=== PATIENT | male | born 1950 | race Caucasian/White ===

== ENCOUNTER 2016-08-24 14:53 | Observation (INO) | payer OTHER, MEDICARE ==
[~2016-08-24] VITALS: Ht 167.6 cm; Wt 54.4 kg
[~2016-08-24 14:53] MED LIST: ANTIVERT 25 MG25 M1 PO; ASPIRIN EC325 MG PO; BENTYL10 M1 PO; CALCIUM + D 6001 TAB PO; CIPRO 500MG TA500 MG PO; CIPRO250 M1 PO; CITRATE OF MAG300 ML PO; DILANTIN100 M1 PO; DILANTIN50 MG PO; DIVALPROEX SOD250 M2 PO; FINASTERIDE5 M1 PO; GLUCOSAMINE & C1 CAP PO; LEVAQUIN500 MG PO; LEVETIRACETAM500 M2 PO; LEVETIRACETAM500 MG PO; LEVSIN-SL0.125 MG SL; MULTIVITAMIN1 TAB PO; NAPROSYN500 M1 PO; PERCOCET 325 MG1 TA2 PO; PERCOCET 5-3251 EACH PO; PHENOBARBITAL32.4 M1 PO; PHENOBARBITAL32.4 MG PO; PRILOSEC10 M1 PO; TRAMADOL HCL50 M1 PO; ZOFRAN ODT4 M1 SL; ZOFRAN ODT4 MG PO; ZOFRAN4 M2 SL; [UNRECOGNIZED DRUG - OTHER] PO
--- NOTE | 2016-08-24 14:59 | NUR ---
65 Y/O MALE C/O "IM SHAKING BUT IM SWEATING .. I HAVE A HEADACHE .. I HAVE URINARY PROBLEMS .. I HAVENT HAD A BOWEL MOVEMENT IN A WEEK .. ". PT STATES THE PRIMARY REASON HE IS HERE TODAY IS "THE HOT, THE COLD AND THE SHAKES". AFEBRILE.
--- NOTE | 2016-08-24 15:07 | NUR ---
APPRECIATE TRIAGE NOTE. ALERT, WALKS WITH CANE, STATES "I CAN'T STOP PEEING"/
--- NOTE | 2016-08-24 15:49 | NUR ---
IV STARTED, MEDICATED FOR PAIN, LABS DRAWN (1 SST, 1 PURPLE). BLADDER SCANNED: GREATER THAN 999, DR. CHAVEZ AWARE.
--- NOTE | 2016-08-24 15:52 | ED GI/GU/ABDOMINAL COMPLAINT ---
See Addendum History of Present Illness General Chief Complaint: Nausea, Vomiting, Diarrhea Stated Complaint: NVD Source: patient, old records Exam Limitations: no limitations Vital Signs & Intake/Output Vital Signs & Intake/Output Vital Signs Date Time Temp Pulse Resp B/P Pulse O2 O2 Flow FiO2 Ox Delivery Rate 08/25 1104 76 18 127/78 08/25 1101 97.1 66 122/78 96 08/25 0948 97.1 72 124/70 96 08/25 0418 97.3 88 18 121/68 96 Room Air 08/24 2254 97.3 77 18 128/66 98 08/24 1731 80 20 124/72 97 Room Air 08/24 1714 95.4 68 18 121/75 100 Room Air 08/24 1458 97.9 108 16 132/84 98 Room Air ED Intake and Output 08/25 0000 08/24 1200 Intake Total 510 Output Total 60 Balance 450 Intake, IV 500 Intake, Oral 10 Output, Urine 60 Patient 120 lb Weight Allergies Coded Allergies: Iodinated Contrast Media - Oral and (IODINATED CONTRAST MEDIA - IV DYE) (GONZALEZ 10/20/15) latex (RASH 08/24/16) morphine (nv 02/09/16) oxycodone (NAUSEA 08/24/16) Uncoded Allergies: OIL BASE PAINT (Severe, LIGHT HEADED 08/22/11) Reconcile Medications Aspirin (Aspirin*) 325 MG TABLET 0.5 TAB PO DAILY HEART/BLOOD (Reported) Divalproex Sodium 250 MG TABLET.DR 1 TAB PO DAILY SEIZURES (Reported) Finasteride (Unknown Strength) TABLET 5 MG PO DAILY BLADDER (Reported) Levetiracetam 500 MG TABLET 1 TAB PO DAILY SEIZURES (Reported) Levetiracetam 500 MG TABLET 2 TAB PO QPM SEIZURES (Reported) Multivitamin (Multi-Day Vitamins) 1 EACH TABLET 1 TAB PO DAILY SUPPLEMENT ( Reported) Phenobarbital 32.4 MG TABLET 1 TAB PO BID Seizures Phenytoin (Dilantin) 100 MG CAPSULE 1 CAP PO QAM SEIZURES (Reported) Phenytoin (Dilantin) 50 MG TAB.CHEW 1 TAB PO QAM SEIZURES (Reported) Triage Note: 65 Y/O MALE C/O "IM SHAKING BUT IM SWEATING .. I HAVE A HEADACHE .. I HAVE URINARY PROBLEMS .. I HAVENT HAD A BOWEL MOVEMENT IN A WEEK .. ". PT STATES THE PRIMARY REASON HE IS HERE TODAY IS "THE HOT, THE COLD AND THE SHAKES". AFEBRILE. Triage Nurses Notes Reviewed? yes Onset: Last week Duration: day(s):, continues in ED, getting worse Timing: recent history Quality/Severity: fullness, severe Location: suprapubic Radiation: no radiation Activities at Onset: none Prior Abdominal Problems: similar symptoms Past Sexual History: Unobtainable at this time Sexually Active: No Modifying Factors: Worsens With: palpation. Associated Symptoms: abdominal pain HPI: 1 week prior to admission patient notes progressive decrease in urine stream to just drops with lower abdominal distention nausea weakness chills. He attempted to catheterize himself prior to admission but was unsuccessful but improving stream to trickle. He has been incontinent of urine since this time. He denies fever diarrhea chest pain cough shortness of breath headache dysuria rash bleeding. (QUYNH CHAVEZ MD) Past History Travel History Traveled to [place] past 21 day No Medical History Any Pertinent Medical History? see below for history Neurological: seizure EENT: NONE Cardiovascular: NONE Respiratory: NONE Gastrointestinal: PANCREATITIS Hepatic: CHOLECYSTECTOMY Renal: BRP TURP URETERAL STRICTURES Musculoskeletal: ARTHRITIS Psychiatric: anxiety, depression Endocrine: NONE Blood Disorders: NONE Cancer(s): NONE Other Medical Hx: BPH History of MRSA: No History of VRE: No History of CDIFF: No Surgical History Surgical History: TURP CYSTOSCOPY/URETERAL STRICTURE (02/09) Psychosocial History Who do you live with Patient/Self Services at Home None What is your primary language Montserratian Tobacco Use: Quit >30 days ago Family History Family History, If Any: MOTHER FH: heart disease FATHER FH: cancer Hx Contributory? No (QUYNH CHAVEZ MD) Review of Systems Review of Systems Constitutional: Reports: see HPI, malaise. EENTM: Reports: no symptoms. Respiratory: Reports: no symptoms. Cardiovascular: Reports: no symptoms. GI: Reports: see HPI, abdominal pain, nausea. Genitourinary: Reports: see HPI, urgency. Musculoskeletal: Reports: no symptoms. Skin: Reports: no symptoms. Neurological/Psychological: Reports: no symptoms. Hematologic/Endocrine: Reports: no symptoms. Immunologic/Allergic: Reports: no symptoms. All Other Systems: Reviewed and Negative (QUYNH CHAVEZ MD) Physical Exam Physical Exam General Appearance: well developed/nourished, alert, awake, anxious, moderate distress Head: atraumatic, normal appearance Eyes: Bilateral: normal appearance, PERRL, EOMI, normal inspection. Ears, Nose, Throat, Mouth: hearing grossly normal, moist mucous membrane Neck: normal inspection, supple, full range of motion, normal alignment, no midline tenderness Respiratory: normal breath sounds, chest non-tender, no respiratory distress, quiet respiration, lungs clear Cardiovascular: regular rate/rhythm, normal peripheral pulses, norml femoral pulses equa Peripheral Pulses: 4+ carotid (R), 4+ carotid (L) Gastrointestinal: normal bowel sounds, distention, tenderness (suprapubic) Male Genitals: normal genitalia Back: normal inspection, normal range of motion, no vertebral tenderness Extremities: normal range of motion, no ligament instability Neurologic/Psych: no motor/sensory deficits, awake, alert, oriented x 3, normal gait, floater operator II-XII nml as tested Skin: intact, normal color Core Measures ACS in differential dx? No Severe Sepsis Present: No Septic Shock Present: No (KATHY DAILY,QUYNH) Progress Differential Diagnosis: pyelonephritis, urinary retention, UTI/pyelo Plan of Care: Orders Procedure Date/time Status Nothing by Mouth 08/25 B Active Seizure Precautions 08/25 1102 Active EKG 08/24 2303 Active Enema 08/24 2111 Active URINALYSIS 08/24 1524 Complete COMPREHENSIVE METABOLIC PANEL 08/24 1524 Complete CBC WITHOUT DIFFERENTIAL 08/24 1524 Complete Laboratory Tests 08/24/16 1615: Urine Color STRAW, Urine Clarity CLEAR, Urine pH 6.0, Ur Specific [place] 1.015, Urine Protein NEG, Urine Ketones NEG, Urine Nitrite NEG, Urine Bilirubin NEG, Urine Urobilinogen 0.2, Ur Leukocyte Esterase TRACE H, Ur Microscopic SEDIMENT EXAMINED, Urine RBC 1-3, Urine WBC 1-3 H, Urine Hemoglobin SMALL H, Urine Glucose NEG 08/24/16 1540: Anion Gap 12, Estimated GFR > 60, BUN/Creatinine Ratio 13.3, Glucose 90, Calcium 9.1, Total Bilirubin 0.4, AST 26, ALT 39, Alkaline Phosphatase 127 H, Total Protein 7.1, Albumin 4.1, Globulin 3.0, Albumin/Globulin Ratio 1.4, CBC w Diff NO MAN DIFF REQ, RBC 4.17 L, MCV 92.9, MCH 31.5 H, RDW 13.4, MPV 7.4, Gran % 74.0, Lymphocytes % 14.9 L, Monocytes % 8.6, Eosinophils % 2.2, Basophils % 0.3 , Absolute Granulocytes 4.5, Absolute Lymphocytes 0.9 L, Absolute Monocytes 0.5 , Absolute Eosinophils 0.1, Absolute Basophils 0, PUBS MCHC 33.9 08/25/2016 7:21:42 AM Patient signed out to me by Dr. Espinosa. He will go to the operating room for suprapubic catheter placement by Dr. Angeles. (CRISTI ALAMO MD) Initial ED EKG: none Hand-Off Endorsed To: ABBI ESPINOSA MD Endorsed Time: 1900 Pending: consult (Urology SPT) Comments: Bladder scan with greater than 950 ML. Nursing unable to pass pediatric coude Urologist notified. Suprapubic tube planned (QUYNH CHAVEZ MD) Initial ED EKG: NSR, nonspecific ST T wave chg Hand-Off Endorsed To: CRISTI ALAMO MD Endorsed Time: 0700 Pending: consult (UROLOGY - OR) Comments: Patient has been seen by Dr. ANGELES. Patient will go to the operating room in the morning for suprapubic catheter. Patient states that he has been having increasing shaking chills over the past 2 years. Patient has lost 30 pounds in the past 3 months without trying to. Patient has night sweats a few times per week to the point that he needs to change his bedclothes and a few times this evening had to change his sheets as well during the night. Patient states he has been coughing but denies any hemoptysis. There's been no fevers. Lives alone. We'll obtain a CAT scan of his abdomen and pelvis. There is no cardiac murmur. There are no Janeway lesions. (ABBI ESPINOSA MD) Departure Departure Disposition: STILL A PATIENT Condition: Stable Clinical Impression Primary Impression: Urethral stricture unspecified Qualifiers: Urethral stricture type: unspecified stricture type Qualified Code: N35.9 - Urethral stricture, unspecified Secondary Impressions: Urinary retention Referrals: DOMINICK CORDOBA MD (PCP/Family) Departure Forms: Customer Survey General Discharge Information (QUYNH CHAVEZ MD) PA/FRENCH FOLDER Co-Sign Statement Statement: ED Attending supervision documentation- [] I saw and evaluated the patient. I have also reviewed all the pertinent lab results and diagnostic results. I agree with the findings and the plan of care as documented in the PA's/FRENCH FOLDER's documentation. [X] I have reviewed the ED Record and agree with the PA's/FRENCH FOLDER's documentation. [] Additions or exceptions (if any) to the PAs/FRENCH FOLDER's note and plan are summarized below: [] (JASMEET DAILY,CRISTI) (KATHY DAILY,QUYNH)
--- NOTE | 2016-08-24 15:54 | RADIOLOGY REPORT ---
EXAMINATION: XR CHEST CLINICAL INFORMATION: Shaking chills. COMPARISON: Chest x-ray 06/11/2014 TECHNIQUE: PA and lateral views of the chest were obtained. FINDINGS: Lungs are clear. No pulmonary vascular congestion. No infiltrate or pleural effusion. The heart size is normal. The cardiac and mediastinal contours are normal. There are multilevel degenerative changes of dorsal spine. IMPRESSION: No acute abnormality.
[2016-08-24 15:56] LABS: ABSOLUTE BASOPHIL COUNT 0 /CUMM (0.0-0.2); ABSOLUTE EOSINOPHIL COUNT 0.1 /CUMM (0.0-0.7); ABSOLUTE GRANULOCYTE CT 4.5 /CUMM (1.4-6.5); ABSOLUTE LYMPH COUNT 0.9 /CUMM (1.2-3.4); ABSOLUTE MONOCYTE COUNT 0.5 /CUMM (0.10-0.60); BASOPHIL % 0.3 % (0.0-2.0); EOSINOPHIL % 2.2 % (0-5); HEMATOCRIT 38.8 % (42-52); MEAN CORPUSCULAR HGB 31.5 PG (27.0-31.0); MEAN CORPUSCULAR HGB CONC 33.9 G/DL (33.0-37.0); MEAN CORPUSCULAR VOLUME 92.9 FL (80.0-94.0); MEAN PLATELET VOLUME 7.4 FL (7.4-10.4); PLATELET COUNT 251 /CUMM (130-400); RBC DISTRIBUTION WIDTH 13.4 % (11.5-14.5); RED BLOOD CELL CT 4.17 /CUMM (4.70-6.10); WHITE BLOOD CELL COUNT 6.1 /CUMM (4.8-10.8)
--- NOTE | 2016-08-24 16:00 | NUR ---
VOIDED SMALL AMOUNT, (60 ML) UA SENT.
--- NOTE | 2016-08-24 16:38 | NUR ---
OSBORNE CATHETER INSERTION ATTEMPTED WITH # 12 COUDE CATHETER, UNABLE TO ADVANCE CATHETER, DR. CHAVEZ AWARE.
[2016-08-24] MEDS ORDERED: ASPIRIN325 M2 PO (16:42)
[2016-08-24] MEDS ORDERED: MULTI-DAY VITA1 EACH PO (16:42)
--- NOTE | 2016-08-24 17:16 | NUR ---
AWAITING CALL BACK FROM DR. DICKINSON, RE: PLAN OF CARE.
--- NOTE | 2016-08-24 18:15 | NUR ---
PT STATES HE DID NOT TAKE ANY OF HIS SEIZURE MEDS TODAY, DUE TO "NOT FEELING GOOD". DR. CHAVEZ AWARE. NPO AT THIS TIME. DR. BARAJAS TO COME AND EVALUATE FOR SUPRPUBIC TUBE INSERTION.
--- NOTE | 2016-08-24 19:22 | NUR ---
DR ARMAS AT BEDSIDE.
--- NOTE | 2016-08-24 19:33 | NUR ---
DR BARAJAS AT BEDSIDE.
--- NOTE | 2016-08-24 19:35 | NUR ---
DR BARAJAS UNABLE TO PERFORM PROCEDURE AT BEDSIDE. PT IS TO STAY IN ED OVERNIGHT FOR OR IN AM PER DR BARAJAS.
--- NOTE | 2016-08-24 20:56 | NUR ---
PHARMACY CALLED FOR MEDICATION.
--- NOTE | 2016-08-24 21:06 | NUR ---
PT UP TO RESTROOM AT THIS TIME.
--- NOTE | 2016-08-24 21:18 | NUR ---
PT RETURNED TO ROOM FROM RESTROOM.
--- NOTE | 2016-08-24 21:19 | NUR ---
DR ARMAS AT BEDSIDE.
--- NOTE | 2016-08-24 21:21 | CT SCAN REPORT ---
EXAMINATION: CT ABDOMEN AND PELVIS WITHOUT CONTRAST CLINICAL INFORMATION: Abdominal pain. Evaluate for obstruction. COMPARISON: CT abdomen and pelvis without contrast 05/22/2016. TECHNIQUE: Multidetector volumetric imaging was performed from the superior aspect of the liver through the pubic symphysis. Sagittal and coronal reformatted images were obtained on the technologist's workstation. DLP: 255 mGy-cm. FINDINGS: Limited evaluation of the solid abdominal viscera in the absence of intravenous contrast. LUNG BASES: The visualized lung bases are unremarkable. LIVER, GALLBLADDER, AND BILIARY TREE: The liver is normal in size, shape, and attenuation. No contour deforming hepatic lesion or biliary ductal dilatation is present. The gallbladder is unremarkable with no evidence of radiopaque gallstones, gallbladder wall thickening, or obvious pericholecystic inflammatory changes. PANCREAS: Unremarkable. SPLEEN: Unremarkable. ADRENAL GLANDS: Unremarkable. KIDNEYS AND URETERS: Evaluation of the bilateral kidneys and renal collecting systems is notable for a 2.5 cm simple renal cortical cyst within the midpole of the right kidney. There are several small parapelvic cysts within the mid and lower poles of the left kidney. No renal or ureteral stones are identified and there is no hydroureteronephrosis of either kidney or renal collecting system. BLADDER: Unremarkable. GASTROINTESTINAL TRACT: Evaluation of the gastrointestinal system is notable for a significant amount of retained stool throughout the colon, indicative of severe constipation. There is a small bowel feces sign with feculent material identified within the jejunum. This is likely secondary to delayed intestinal transit. Loops of small bowel are normal in caliber, without findings indicative of small bowel obstruction. The appendix is not clearly visualized on this exam. There are no acute inflammatory changes within the right lower quadrant of the abdomen. There are no visible organizing intra-abdominal or pelvic fluid collections. Incidental note is made of a tiny locule of air anterior to the urinary bladder (series 601, image 61). This may be secondary to recent attempts at placement of a suprapubic catheter given overlying subcutaneous edema and small subcutaneous hematoma. ABDOMINAL WALL: As noted above, there are scattered foci of subcutaneous emphysema along the right paramedian abdominal wall with associated stranding. This may be related to recent attempt at placement of a suprapubic catheter. LYMPH NODES: No significant mesenteric, retroperitoneal, deep pelvic or inguinal adenopathy. VASCULAR: Normal course and caliber of the abdominal aorta and its branching vessels, without aneurysmal dilatation. Limited evaluation for vascular patency in the absence of intravenous contrast. PELVIC VISCERA: Coarse calcifications within the central prostate. OSSEOUS STRUCTURES: No acute osseous abnormality. Chronic compression deformity of the L4 vertebral body. 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 IMPRESSION: 1. There is a significant amount of retained stool throughout the colon, indicative of severe constipation. Also noted is a small bowel feces sign, with feculent material identified within proximal loops of jejunum. This is likely secondary to delayed intestinal transit. Normal caliber of abdominal and pelvic bowel loops, without findings indicative of small bowel obstruction. 2. Small locule of extraluminal air anterior to the urinary bladder. Scattered foci of subcutaneous emphysema along the right paramedian abdominal wall with minimal overlying subcutaneous hematoma and stranding. This could be secondary to recent attempt at placement of a suprapubic catheter. Correlate with patient clinical history. 3. No significant abdominal or pelvic adenopathy. This critical result was discussed with Dr. Golden Espinosa at 9:06 PM on 07/24/2017 and it was ascertained that the content and urgency of the report was understood at the time of direct communication.
--- NOTE | 2016-08-24 22:03 | NUR ---
SOAP SUDS ENEMA INITIATED.
--- NOTE | 2016-08-24 22:04 | NUR ---
PT UNABLE TO TOLERATE SSE AT THIS TIME, PT REQUESTING TO STOP. SMALL AMT OF BROWN LIQUID IN COMMODE.
--- NOTE | 2016-08-24 22:13 | NUR ---
PT UP TO RESTROOM.
--- NOTE | 2016-08-24 22:40 | NUR ---
PT STATES IT IS OKAY TO TRY SSE AGAIN. PT UNABLE TO TOLERATE MORE THAN ABOUT 200ML. PT UP TO COMMODE.
--- NOTE | 2016-08-24 22:44 | NUR ---
DR ARMAS NOTIFIED THAT PT IS UNABLE TO TOLERATE SSE.
--- NOTE | 2016-08-25 00:35 | NUR ---
PT RESTING ON STRETCHER. NO APPARENT DISTRESS NOTED AT THIS TIME.
--- NOTE | 2016-08-25 02:36 | NUR ---
INTERMITTANTLY DOSING NO S/S OF SZ ACTIVITY, ALERT WHEN AWAKE NPO STATUS POSTED ON DOOR, PT AWARE OF STATUS.
--- NOTE | 2016-08-25 04:17 | NUR ---
PT RESTING QUIETLY ON STRETCHER.
--- NOTE | 2016-08-25 04:54 | NUR ---
PT USED BATHROOM AND CLAIMS TO HAVE HAD BLOOD IN STOOL. DR ARMAS AWARE
--- NOTE | 2016-08-25 06:07 | NUR ---
PRE-OP CHECKLIST INITIATED BY THIS RN, NOT COMPLETE AT THIS TIME.
--- NOTE | 2016-08-25 08:05 | NUR ---
ASSUMED CARE OF PT AT THIS TIME WHO APPEARS TO BE SLEEPING WITH EQUAL CHEST RISE AND FALL. SPOKE WITH DIANE IN OR - DR BARAJAS NOT READY TO TAKE PT UNTIL AFTER 5PM. NPO MAINTAINED AT THIS TIME.
--- NOTE | 2016-08-25 09:47 | NUR ---
PT NOW AWAKE. C/O HEADACHE AND ASKING FOR DAILY SEIZURE MEDS MD ALAMO AWARE AND WILL BE INTO SPEAK WITH PT
--- NOTE | 2016-08-25 10:17 | NUR ---
PHARMACY CALLED FOR MEDS.
--- NOTE | 2016-08-25 10:47 | NUR ---
MED WITH AM MEDS PER MAR - SEIZURE MEDS AND FIORCET. PT TOOK ALL MEDS WITH SMALL SIPS OF WATER. AWARE HE IS TO REMAIN NPO FOR SURGERY. OK TO GIVE MEDS WITH WATER PER MD ALAMO PT PLEASANT AND WITHOUT ANY ADDITIONAL NEEDS AT THIS TIME CALL LIGHT IN PLACE.
--- NOTE | 2016-08-25 11:01 | NUR ---
CALLED INTO ROOM BY PT, HAD PERIOD OF UNRESPONSIVENESS, THEN SLURRED SPEECH, AND SLIGHT ARM TREMORS, ? SEIZURE. DR. ALAMO TO BEDSIDE. MEDICATED WITH ATIVAN 1 MG IV.
--- NOTE | 2016-08-25 11:03 | NUR ---
MORE AWAKE, C/O HEADACHE.
--- NOTE | 2016-08-25 11:28 | CT SCAN REPORT ---
EXAMINATION: CT HEAD WITHOUT CONTRAST CLINICAL INFORMATION: History of seizures. Persistent headache since last night. COMPARISON: 05/22/2016 TECHNIQUE: Contiguous axial imaging was performed from the skull base to vertex without intravenous contrast. DLP: 529 mGy-cm. FINDINGS: There is no evidence of acute intracranial hemorrhage or territorial infarction. No abnormal mass effect or midline shift is seen. [place] to white matter differentiation is well preserved. No extra-axial fluid collections are identified. No hydrocephalus. Mild cerebral volume loss. More prominent cerebellar volume loss is again noted. There is no abnormal attenuation within the brain parenchyma. The osseous structures and soft tissues are normal. The mastoid air cells and visualized portions of the paranasal sinuses are well aerated. IMPRESSION: No acute intracranial pathology. Prominent cerebellar volume loss again noted.
--- NOTE | 2016-08-25 11:48 | NUR ---
TO/FROM CT SCAN PT AWAKE AND CONVERSANT WITH NO DEFICITS NOTED. D5 1/2 NS INFUSING PER MAR AT THIS TIME PT AWARE HE IS WAITING ON OR TO BE READY
--- NOTE | 2016-08-25 14:19 | NUR ---
SPOKE WITH SAMY CONTRERAS FOR UPDATE. STATE PT WILL STILL GO AFTER 1700 TODAY
--- NOTE | 2016-08-25 15:10 | NUR ---
PT AMBULATORY TO BATHROOM IN ROOM 10. CAME OUT AND STATES "THAT WAS THE FIRST TIME I FELT LIKE I EMPTIED MY BLADDER". STATES HE VOIDED "MORE THAN 2 CUPS". PT REQUESTING ALL OF HIS BELONGINGS TO BE PLACED IN SEPARATE BAGS (HAT IN ONE BAG ... PANTS IN ANOTHER BAG ... JACKET IN ONE BAG ...). PT HAS A TOTAL OF 5 BELONGINGS BAGS, ALL LABELED AND TIED TOGETHER. PT REMAINS WITHOUT ANY COMPLAINTS. NPO MAINTAINED.
--- NOTE | 2016-08-25 15:14 | NUR ---
REPORT GIVEN TO EDMAR HUIZAR
--- NOTE | 2016-08-25 20:00 | NUR ---
PT ARRIVED FROM PACU VIA STRETCHER, OSBORNE CATHETER IN PLACE DRAINING CLEAR YELLOW URINE TO BEDSIDE. PT WITH 5 BELONGINGS BAGS, ALL PLACED IN CABINET. ORIRENTED PT TO ROOM AND CALL SYSTEM. VSS. DR BARAJAS CALLED TO HAVE PT'S HOME MEDS ORDERED. WILL MONITOR.
[2016-08-25 20:23] VITALS: BP 118/70
--- NOTE | 2016-08-25 21:30 | NUR ---
PT'S BROTHER AT BEDSIDE REQUESTING INFORMATION REGARDING SURGERY AND PT'S STATUS. PT GAVE VERBAL PERMISSION TO THIS RN TO SPEAK WITH BROTHER. AVAILABLE INFORMATION ABOUT SX THAT WAS PERFORMED AND PLAN TO DISCHARGE PT TOMORROW RELAYED. BROTHER BECOMING AGITATED WHEN THIS RN COULD NOT ANSWER QUESTIONS TO WHY ER HAD TOLD HIM THAT THE PT WAS NOT HERE AND THAT THE ER HAD STATED SURGERY WOULD BE TOMORROW. NURSE INSPECTOR FILTERS DEAN UPDATED ON SITUATION AND IN TO SPEAK TO PT AND BROTHER. PLAN TO HAVE PT CALL BROTHER WHEN DR BARAJAS IS IN TOMORROW SO HE CAN ASK HIM THE QUESTIONS HE HAS.
[2016-08-26 00:49] VITALS: BP 94/60
[2016-08-26 07:09] VITALS: BP 108/60
[2016-08-26 08:16] LABS: ABSOLUTE BASOPHIL COUNT 0 /CUMM (0.0-0.2); ABSOLUTE EOSINOPHIL COUNT 0.2 /CUMM (0.0-0.7); ABSOLUTE GRANULOCYTE CT 4.8 /CUMM (1.4-6.5); ABSOLUTE LYMPH COUNT 0.8 /CUMM (1.2-3.4); ABSOLUTE MONOCYTE COUNT 0.6 /CUMM (0.10-0.60); BASOPHIL % 0.4 % (0.0-2.0); EOSINOPHIL % 2.5 % (0-5); GRANULOCYTE % 75.2 % (42.2-75.2); HEMATOCRIT 38.4 % (42-52); MEAN CORPUSCULAR HGB 31.8 PG (27.0-31.0); MEAN CORPUSCULAR VOLUME 93.4 FL (80.0-94.0); MEAN PLATELET VOLUME 7.6 FL (7.4-10.4); PLATELET COUNT 220 /CUMM (130-400); RBC DISTRIBUTION WIDTH 13.1 % (11.5-14.5); RED BLOOD CELL CT 4.11 /CUMM (4.70-6.10); WHITE BLOOD CELL COUNT 6.4 /CUMM (4.8-10.8)
--- NOTE | 2016-08-26 09:36 | Cons- Urology ---
General Information and HPI Consulting Request Date of Consult: 08/24/16 Requested By: md judy, [facility], [facility], [facility] Reason for Consult: urinary retention-unable to pass loza Source of Information: patient, old records Exam Limitations: no limitations History of Present Illness: 65 year old with seizure disorder: urethral stricture with plan for stricturotomy-now in ER with retention. loza trialed without success. 18 g needle probe at tender spt without urine draw-plan for cysto. Allergies/Medications Allergies: Coded Allergies: Iodinated Contrast Media - Oral and (IODINATED CONTRAST MEDIA - IV DYE) (GONZALEZ 10/20/15) latex (RASH 08/24/16) morphine (nv 02/09/16) oxycodone (NAUSEA 08/24/16) Uncoded Allergies: OIL BASE PAINT (Severe, LIGHT HEADED 08/22/11) Home Med List: Amoxicillin/Potassium Clav (Amox-Clav 500-125 MG Tablet) 500 MG-125 MG TABLET 1 TAB PO BID ANTIBIOTIC (Reported) Aspirin (Aspirin*) 325 MG TABLET 0.5 TAB PO DAILY HEART/BLOOD (Reported) Buspirone HCl 15 MG TABLET 0.5 TAB PO BID TINNITUS (Reported) Diazepam (Valium) 5 MG TABLET 1 TAB PO TID SPASMS Diazepam (Valium) 5 MG TABLET 1 TAB PO TID SPASMS Divalproex Sodium 250 MG TABLET.DR 1 TAB PO DAILY SEIZURES (Reported) Finasteride (Unknown Strength) TABLET 5 MG PO DAILY BLADDER (Reported) Levetiracetam 500 MG TABLET 1 TAB PO DAILY SEIZURES (Reported) Levetiracetam 500 MG TABLET 2 TAB PO QPM SEIZURES (Reported) Multivitamin (Multi-Day Vitamins) 1 EACH TABLET 1 TAB PO DAILY SUPPLEMENT ( Reported) Phenobarbital 32.4 MG TABLET 1 TAB PO BID Seizures Phenytoin (Dilantin) 100 MG CAPSULE 1 CAP PO QAM SEIZURES (Reported) Phenytoin (Dilantin) 50 MG TAB.CHEW 1 TAB PO QAM SEIZURES (Reported) Current Medications: Current Medications Sig/Merly Start time Last Medication Dose Route Stop Time Status Admin Acetaminophen/ 1 TAB ONCE ONE 08/25 1000 DC 08/25 Butalbital/Caffeine PO 08/25 1001 1047 Aspirin Buffered 325 MG DAILY 08/26 1000 AC 08/26 PO 0920 Dextrose/Sodium 1,000 ML Q6H 08/25 1130 AC 08/26 Chloride IV 0554 Divalproex Sodium 250 MG 0800 08/26 0800 AC 08/26 PO 0920 Divalproex Sodium 250 MG ONCE ONE 08/25 1000 DC 08/25 PO 08/25 1001 1047 Docusate Sodium 100 MG TID 08/25 2200 AC 08/26 PO 0922 Finasteride 5 MG DAILY 08/26 1000 AC 08/26 PO 0921 Ibuprofen 400 MG 4 TIMES/DAY PRN 08/25 2100 AC 08/26 PO 0641 Influenza Virus 0.5 ML ONCE ONE 08/25 2145 DC 08/25 Vaccine IM 08/25 2146 2256 Levetiracetam 500 MG DAILY 08/26 1000 AC 08/26 PO 0921 Levetiracetam 1,000 MG AT BEDTIME 08/25 2199 AC 08/25 PO 2250 Levetiracetam 500 MG ONCE ONE 08/25 1000 DC 08/25 PO 08/25 1001 1047 Lorazepam 1 MG ONCE ONE 08/25 1115 DC 08/25 IV 08/25 1116 1116 Lorazepam 0 .STK-MED ONE 08/25 1102 DC .ROUTE Meperidine HCl 50 MG Q4P PRN 08/25 2030 AC IM Multivitamins 1 TAB DAILY 08/26 1000 AC 08/26 PO 0921 Phenazopyridine HCl 100 MG TIDPRN PRN 08/25 2215 AC PO Phenobarbital 32.4 MG BID 08/25 2200 AC 08/25 PO 2249 Phenobarbital 0 .STK-MED ONE 08/25 1041 DC PO Phenobarbital 32.4 MG ONCE ONE 08/25 1000 DC 08/25 PO 08/25 1001 1047 Phenytoin 50 MG TID 08/25 2199 AC 08/26 PO 0922 Phenytoin 150 MG ONCE ONE 08/25 1000 DC 08/25 PO 08/25 1001 1047 Temazepam 15 MG AT BEDTIME NEED.. 08/25 220 AC PO Past History Medical History Blood Transfusion Hx: No Neurological: migraine, seizure, EPILEPSY EENT: NONE Cardiovascular: PALPITATIONS Respiratory: NONE Gastrointestinal: PANCREATITIS Hepatic: CHOLECYSTECTOMY Renal: BRP TURP URETERAL STRICTURES Musculoskeletal: ARTHRITIS L4 COMPRESSION FX Psychiatric: anxiety, depression Endocrine: NONE Blood Disorders: NONE Cancer(s): NONE Other Medical Hx: BPH Surgical History Pertinent Surgical History: TURP CYSTOSCOPY/URETERAL STRICTURE (02/09) Family History Relations & Conditions If Any: MOTHER FH: heart disease FATHER FH: cancer Psychosocial History Who Do You Live With? self Services at Home: None Primary Language: Mohawk Smoking Status: Former Smoker Functional Ability ADLs Independent: dressing, eating, toileting, bathing. Ambulation: independent IADLs Independent: shopping, housework, finances, food prep, telephone, transportation , medication admin. Employment History Retired? yes Exam & Diagnostic Data Vital Signs and I&O vss afebrile Assessment/Plan Assessment/Plan pt with urethral stricture voidng slowly: requires DVIU [place]. Consult Acknowledgment - Thank you for your consult request.
--- NOTE | 2016-08-26 13:23 | NUR ---
CONTACTED DR. BARAJAS AT 1320 ON 08/26/2016 REGARDING CONCERNS OVER PATIENT'S ANTICIPATED DC. THIS RN AMBULATED PATIENT PRIOR TO DC. PATIENT NOTED TO BE UNSTEADY AT TIMES DURING AMBULATION. HAD PATIENT AMBULATE TWICE AROUND THE FLOOR FROM 2NB TO 2NA (X2). PATIENT USED HIS SPECIAL CANE, HAD ONE EPISODE ON WHERE HE HELD ON THE SIDE RAIL DUE TO LOSS OF BALANCE. PER DR. BARAJAS OKAY TO CONTINUE WITH THE DISCHARGE PLAN. THIS PATIENT IS WELL KNOWN TO DR. BARAJAS. PER DR. BARAJAS, HIS GAIT IS THE SAME WHEN HE GOES INTO HIS OFFICE. "HE BUMPS INTO [facility]. HE HAS SEEN A NEUROLOGIST AND THEY DON'T KNOW WHAT IS CAUSING IT". OTHERWISE, PATIENT IS STABLE FOR DISCHAGE. VSS. DENIES PAIN AT THIS TIME. ADVISED PATIENT TO DANGLE FEET BEFORE AMBULATION AND TO USE HIS CANE AT ALL TIMES. PT VERBALIZED UNDERSTANDING AND STATES THAT HE IS ALWAYS A LITTLE "SHAKY". HE FEELS READY FOR DISCHARGE.
--- NOTE | 2016-08-27 04:08 | Operative Report ---
Operative/Inv Procedure Report Surgery Date: 08/25/16 Name of Procedure: CYSTOSCOPY: DVIU Pre-Operative Diagnosis: URETHRAL STRICTURE Post-Operative Diagnosis: SAME Estimated Blood Loss: scant Surgeon/Director Engineering: ANGELA BARAJAS MD Anesthesia: laryngeal mask airway Drains: 18 FR LOZA/5CC Complications: NONE Operative/Procedure Note Note: The patient was taken to the operating room and placed on the OR table in supine position. Timeout was performed, with the patient awake, in order to confirm, and other pertinent perioperative information. After adequate anesthesia and antibiotics the patient was then placed lithotomy stirrups draped and prepped in usual surgical fashion. A 22 Indian cystoscope sheath with a 30 angle lens was inserted under direct visualization. Upon entering the distal bulbar urethra, a narrow stricture/scar tissue was seen with a very narrow lumen. A 0.038 Glidewire was inserted into the cystoscope and advanced into the narrow aperture without difficulty. At this point the diode laser was then inserted through the LASER cystoscope. The laser fiber was extended beyond the cystoscope, and positioned away from the gluide wire that was directly visible. With the laser fiber placed at the 12 o'clock position in direct contact with the stricture, the laser was fired in order to create a stricturotomy at the 12 o'clock position of the scar tissue. The laser was disengaged and removed. The 26 Fr. laser cystoscope was then able to enter the bulbar urethra, through the obstructing prostate, and the bladder without significant difficulty. The bladder was noted to be free of tumor, free of stone, with signficant trabeculation, and was then drained via the cystoscope. The cystoscope was then retracted back to the level of the urethral stricture. The cystoscope was then removed. A 20Fr./5cc loza was inserted easily draining clear fluid, and the balloon was filled with 5cc sterile water. All sponge needle and instrument count were correct at the of the case. The patient tolerated procedure was then taken to the recovery room in satisfactory condition. His discharge home with antibiotics and pain medication, and to follow up in 1-2 weeks' time. Findings: BULBAR URETHRAL STRICTURE Discharge Disposition: PACU Additional Comments: ADMITTED FOR PAIN MANAGEMENT AND SEIZURE DISORDER-LIVES ALONE CC: ANGELA BARAJAS MD
== END 2016-08-26 14:20 ==
LOC: ERH 14:53 → ER-OR 15:00 → ERH 15:00 → 2NB 08-25 15:14
PROVIDERS: Emergency Medicine; ADMIT Urology
DX: N35.9 Urethral stricture, unspecified (principal); R33.9 Retention of urine, unspecified; R56.9 Unspecified convulsions; Z23 Encounter for immunization
CPT/HCPCS: 6040; 36415; 74176; 81001; 82436; 93005; 93010; 96374; G0008; G0378; J0696; J1885; J1953; J2250; J2405; J3010; J7042; Q2036

== ENCOUNTER 2016-08-28 05:15 | Emergency (ER) | payer OTHER, MEDICARE ==
[~2016-08-28] VITALS: Ht 167.6 cm; Wt 54.4 kg
[~2016-08-28 05:15] MED LIST changes: +ASPIRIN325 M2 PO; +MULTI-DAY VITA1 EACH PO
--- NOTE | 2016-08-28 06:00 | ED GI/GU/ABDOMINAL COMPLAINT ---
History of Present Illness General Chief Complaint: General Adult Stated Complaint: " CATHETER PROBLEMS" Source: patient Exam Limitations: no limitations Vital Signs & Intake/Output Vital Signs & Intake/Output Vital Signs Date Time Temp Pulse Resp B/P Pulse O2 O2 Flow FiO2 Ox Delivery Rate 08/28 0710 98.0 88 18 122/60 99 Room Air 08/28 0537 97.3 89 18 126/62 98 Room Air Allergies Coded Allergies: Iodinated Contrast Media - Oral and (IODINATED CONTRAST MEDIA - IV DYE) (GONZALEZ 10/20/15) latex (RASH 08/24/16) morphine (nv 02/09/16) oxycodone (NAUSEA 08/24/16) Uncoded Allergies: OIL BASE PAINT (Severe, LIGHT HEADED 08/22/11) Reconcile Medications Aspirin (Aspirin*) 325 MG TABLET 0.5 TAB PO DAILY HEART/BLOOD (Reported) Divalproex Sodium 250 MG TABLET.DR 1 TAB PO DAILY SEIZURES (Reported) Finasteride (Unknown Strength) TABLET 5 MG PO DAILY BLADDER (Reported) Levetiracetam 500 MG TABLET 1 TAB PO DAILY SEIZURES (Reported) Levetiracetam 500 MG TABLET 2 TAB PO QPM SEIZURES (Reported) Multivitamin (Multi-Day Vitamins) 1 EACH TABLET 1 TAB PO DAILY SUPPLEMENT ( Reported) Phenobarbital 32.4 MG TABLET 1 TAB PO BID Seizures Phenytoin (Dilantin) 100 MG CAPSULE 1 CAP PO QAM SEIZURES (Reported) Phenytoin (Dilantin) 50 MG TAB.CHEW 1 TAB PO QAM SEIZURES (Reported) Triage Note: SEE NURSE NOTE Triage Nurses Notes Reviewed? yes Onset: Abrupt Duration: hour(s): Timing: single episode today Quality/Severity: cramping Location: suprapubic Radiation: no radiation Activities at Onset: pt with indwelling loza from stricture release Prior Abdominal Problems: similar symptoms Modifying Factors: Worsens With: other ("loza is clogged"). Associated Symptoms: "loza is blocked.... I had terrible abdominal pain" HPI: 65 yo gentleman h/o of urethral stricture repair 3 days ago, with indwelling loza, now presents with difficulty with the loza draining. He notes, "I woke up and felt like the loza was clogged... There was terrible pain." Upon arrival to the ED, his loza appears to have begun draining again. He is taking post-op antibiotics. He notes no fever, chills, constipation, dyspnea. Past History Travel History Traveled to [place] past 21 day No Medical History Any Pertinent Medical History? see below for history Neurological: migraine, seizure, EPILEPSY EENT: NONE Cardiovascular: PALPITATIONS Respiratory: NONE Gastrointestinal: PANCREATITIS Hepatic: CHOLECYSTECTOMY Renal: BRP TURP URETERAL STRICTURES Musculoskeletal: ARTHRITIS L4 COMPRESSION FX Psychiatric: anxiety, depression Endocrine: NONE Blood Disorders: NONE Cancer(s): NONE Other Medical Hx: BPH History of MRSA: No History of VRE: No History of CDIFF: No Surgical History Surgical History: TURP CYSTOSCOPY/URETERAL STRICTURE (02/09) Psychosocial History Who do you live with Patient/Self Services at Home None What is your primary language Citizen Of [place] Tobacco Use: Never used Daily Tobacco Use Amount/Type: =< 4 Cigarettes daily ETOH Use: occasional use Illicit Drug Use: denies illicit drug use Family History Family History, If Any: MOTHER FH: heart disease FATHER FH: cancer Hx Contributory? No Review of Systems Review of Systems Constitutional: Reports: no symptoms. EENTM: Reports: no symptoms. Respiratory: Reports: no symptoms. Cardiovascular: Reports: no symptoms. GI: Reports: no symptoms. Genitourinary: Reports: no symptoms. Musculoskeletal: Reports: no symptoms. Skin: Reports: no symptoms. Neurological/Psychological: Reports: no symptoms. Hematologic/Endocrine: Reports: no symptoms. Immunologic/Allergic: Reports: no symptoms. All Other Systems: Reviewed and Negative Physical Exam Physical Exam General Appearance: well developed/nourished, mild distress Head: atraumatic, normal appearance Eyes: Bilateral: normal appearance. Ears, Nose, Throat, Mouth: hearing grossly normal Neck: normal inspection, supple, full range of motion Respiratory: normal breath sounds, chest non-tender, no respiratory distress, quiet respiration, lungs clear Cardiovascular: regular rate/rhythm Gastrointestinal: normal bowel sounds, soft, non-tender, minimal suprapubic distension. Back: normal inspection Extremities: normal range of motion Neurologic/Psych: no motor/sensory deficits, awake, alert, oriented x 3 Skin: intact, normal color, warm/dry Core Measures ACS in differential dx? No Severe Sepsis Present: No Septic Shock Present: No Progress Differential Diagnosis: UTI/pyelo, loza catheter issues - obstruction vs other. Plan of Care: Orders Procedure Date/time Status CULTURE,URINE 08/28 610 Active URINALYSIS 08/28 610 Complete Laboratory Tests 08/28/16610: Urinalysis LIGHT H, Urine Color YEL, Urine Clarity CLEAR, Urine pH 6.5, Ur Specific [place] 1.020, Urine Protein NEG, Urine Ketones NEG, Urine Nitrite NEG, Urine Bilirubin NEG, Urine Urobilinogen 0.2, Ur Leukocyte Esterase NEG, Ur Microscopic SEDIMENT EXAMINED, Urine RBC 5-10 H, Urine WBC RARE, Urine Mucus RARE, Urine Hemoglobin LARGE H, Urine Glucose NEG Microbiology 08/28 610 URINE ROUT: Urine Culture - RECD Initial ED EKG: none Departure Departure Disposition: HOME OR SELF CARE Condition: Stable Clinical Impression Primary Impression: Loza catheter problem Referrals: ADALID DAILY,DOMINICK Taveras (PCP/Family) Departure Forms: Customer Survey General Discharge Information Comments 08/28/16. 7:09am... discussed at length with patient... his urine freely flowed without problem throughout ed stay... no sign of infection... pt is already on antibiotics. Bedside u/s reveals a normal, non distended, bladder. Pt safe for discharge, but I filled out w10 to arrange for case management to have vna visit him. pt also instructed to follow up with dr. garcia on tuesday.
[2016-08-28 07:10] VITALS: BP 122/60
--- NOTE | 2016-08-28 11:19 | NUR ---
08/28 CASE MGMT- W10 LEFT FROM DR HUTCHINSON REQUESTING SET UP OF HHS FOR PT. CALL PLACED TO PT AND MESSAGE LEFT REQUESTING RETURN CALL FOR SET UP OF HHS. AWAITING RETURN CALL BACK.
--- NOTE | 2016-08-28 12:30 | NUR ---
08/28/16 CASE MGMT- NOTE LEFT TO CONTACT BROTHER TO SET UP FOR HHS. CALL PLACED TO PT BROTHER ABBI. CALL PLACED AND SPOKE WITH ABBI STATES NO PREFERENCE CALL PLACED TO [facility] OF [facility] SPOKE WITH [facility] AND REFERRAL FAXED. PT AND PT BROTHER IN AGREEMENT WITH D/C PLAN.
== END 2016-08-28 07:13 ==
LOC: ERH 05:15
DX: T83.098A Other mechanical complication of other urinary catheter, initial encounter (principal); T83.84XA Pain due to genitourinary prosthetic devices, implants and grafts, initial encounter; R10.9 Unspecified abdominal pain
CPT/HCPCS: 81001; 87086

== ENCOUNTER 2016-08-30 14:29 | Emergency (ER) | payer OTHER, MEDICARE ==
[~2016-08-30] VITALS: Ht 167.6 cm; Wt 54.4 kg
--- NOTE | 2016-08-30 15:11 | ED GI/GU/ABDOMINAL COMPLAINT ---
History of Present Illness General Chief Complaint: Male Genitourinary Problems Stated Complaint: CATHETER PAIN,DARK URINE Source: patient Exam Limitations: no limitations Allergies Coded Allergies: Iodinated Contrast Media - Oral and (IODINATED CONTRAST MEDIA - IV DYE) (GONZALEZ 10/20/15) latex (RASH 08/24/16) morphine (nv 02/09/16) oxycodone (NAUSEA 08/24/16) Uncoded Allergies: OIL BASE PAINT (Severe, LIGHT HEADED 08/22/11) Reconcile Medications Amoxicillin/Potassium Clav (Amox-Clav 500-125 MG Tablet) 500 MG-125 MG TABLET 1 TAB PO BID ANTIBIOTIC (Reported) Aspirin (Aspirin*) 325 MG TABLET 0.5 TAB PO DAILY HEART/BLOOD (Reported) Buspirone HCl 15 MG TABLET 0.5 TAB PO BID TINNITUS (Reported) Diazepam (Valium) 5 MG TABLET 1 TAB PO TID SPASMS Diazepam (Valium) 5 MG TABLET 1 TAB PO TID SPASMS Divalproex Sodium 250 MG TABLET.DR 1 TAB PO DAILY SEIZURES (Reported) Finasteride (Unknown Strength) TABLET 5 MG PO DAILY BLADDER (Reported) Levetiracetam 500 MG TABLET 1 TAB PO DAILY SEIZURES (Reported) Levetiracetam 500 MG TABLET 2 TAB PO QPM SEIZURES (Reported) Multivitamin (Multi-Day Vitamins) 1 EACH TABLET 1 TAB PO DAILY SUPPLEMENT ( Reported) Phenobarbital 32.4 MG TABLET 1 TAB PO BID Seizures Phenytoin (Dilantin) 100 MG CAPSULE 1 CAP PO QAM SEIZURES (Reported) Phenytoin (Dilantin) 50 MG TAB.CHEW 1 TAB PO QAM SEIZURES (Reported) Triage Note: PT STATES THAT HE HAS OSBORNE CATH AND THAT HE WOKE THIS AM WITH BLADDER PAIN AND URINE LOOKS BLOODY, STATES THAT OSBORNE IS DRAININ FINE. Triage Nurses Notes Reviewed? yes Onset: Abrupt Duration: ACUTE ON CHRONIC Timing: recent history Location: generalized abdomen Radiation: no radiation No Modifying Factors: none HPI: 65-year-old male comes into emergency room for further evaluation of catheter pain and lower abdominal pain. Patient has a Osborne catheter in place. Patient has a history of strictures. Patient has had Osborne catheters before. Patient reports that most recently Dr. Angeles haD TO take him to the operating room about a week ago to put in his Osborne catheter. Patient reports associated cold chills and sweats. This is normal baseline for him. Denies any vomiting or fever that he can recall. Denies any other associated symptoms. (ROSALIND CHOWDHURY) Vital Signs & Intake/Output Vital Signs & Intake/Output Vital Signs Date Time Temp Pulse Resp B/P Pulse O2 O2 Flow FiO2 Ox Delivery Rate 08/30 1646 97.2 80 22 128/70 98 Room Air 08/30 1442 97.5 80 18 133/71 98 Room Air Past History Travel History Traveled to [place] past 21 day No Medical History Any Pertinent Medical History? see below for history Neurological: migraine, seizure, EPILEPSY EENT: NONE Cardiovascular: PALPITATIONS Respiratory: NONE Gastrointestinal: PANCREATITIS Hepatic: CHOLECYSTECTOMY Renal: BRP TURP URETERAL STRICTURES Musculoskeletal: ARTHRITIS L4 COMPRESSION FX Psychiatric: anxiety, depression Endocrine: NONE Blood Disorders: NONE Cancer(s): NONE Other Medical Hx: BPH History of MRSA: No History of VRE: No History of CDIFF: No Surgical History Surgical History: TURP CYSTOSCOPY/URETERAL STRICTURE (02/09) Psychosocial History Who do you live with Patient/Self Services at Home None What is your primary language Czech Tobacco Use: Never used ETOH Use: denies use Illicit Drug Use: denies illicit drug use Family History Family History, If Any: MOTHER FH: heart disease FATHER FH: cancer Hx Contributory? No (ROSALIND CHOWDHURY) Review of Systems Review of Systems Constitutional: Reports: no symptoms. EENTM: Reports: no symptoms. Respiratory: Reports: no symptoms. Cardiovascular: Reports: no symptoms. GI: Reports: see HPI. Genitourinary: Reports: see HPI. Musculoskeletal: Reports: no symptoms. Skin: Reports: no symptoms. Neurological/Psychological: Reports: no symptoms. Hematologic/Endocrine: Reports: no symptoms. Immunologic/Allergic: Reports: no symptoms. All Other Systems: Reviewed and Negative (ROSALIND CHOWDHURY) Physical Exam Physical Exam General Appearance: well developed/nourished, no apparent distress, alert Head: atraumatic, normal appearance Eyes: Bilateral: normal appearance. Ears, Nose, Throat, Mouth: hearing grossly normal, moist mucous membrane Neck: normal inspection, full range of motion Respiratory: normal breath sounds, no respiratory distress Cardiovascular: regular rate/rhythm Gastrointestinal: soft, tenderness Back: normal inspection Extremities: normal range of motion Neurologic/Psych: awake, alert, oriented x 3 Core Measures ACS in differential dx? No Severe Sepsis Present: No Septic Shock Present: No (ROSALIND CHOWDHURY) Progress Differential Diagnosis: orchitis, pancreatitis, prostatitis, peptic ulcer, PUD/ GERD, perforated viscous, pyelonephritis, SBO, STD, testicular torsion, ureterolithiasis, urinary retention, urethritis, UTI/pyelo Initial ED EKG: none Comments: 08/30/2016 4:56:02 PM No acute findings here in the emergency room. Patient's catheter is draining. No blood appreciated. No clots. Afebrile. No white count. Clinically looks well. Do not feel CAT scan is necessary at this time. Discomfort in abdomen and is related to Osborne being placed. Patient told to contact Dr. Angeles. I explained to him I do not want to remove the Osborne because then he would be at risk for urinary retention. (ROSALIND CHOWDHURY) Plan of Care: Orders Procedure Date/time Status LACTIC ACID 08/30 1506 Complete COMPREHENSIVE METABOLIC PANEL 08/30 1506 Complete CBC WITHOUT DIFFERENTIAL 08/30 1506 Complete CULTURE,URINE 08/30 1500 Active URINALYSIS 08/30 1500 Complete Laboratory Tests 08/30/16 1520: Anion Gap 11, Estimated GFR > 60, BUN/Creatinine Ratio 17.8, Glucose 85, Lactic Acid 0.9, Calcium 9.1, Total Bilirubin 0.4, AST 22, ALT 30, Alkaline Phosphatase 122, Total Protein 6.7, Albumin 3.8, Globulin 2.9, Albumin/Globulin Ratio 1.3, CBC w Diff NO MAN DIFF REQ, RBC 4.11 L, MCV 93.4, MCH 31.6 H, RDW 12.9, MPV 7.6, Gran % 62.0, Lymphocytes % 20.9, Monocytes % 9.7 H, Eosinophils % 6.2 H, Basophils % 1.2, Absolute Granulocytes 3.2, Absolute Lymphocytes 1.1 L, Absolute Monocytes 0.5, Absolute Eosinophils 0.3, Absolute Basophils 0.1, PUBS MCHC 33.9 08/30/16 1515: Urinalysis MOD H, Urine Color YEL, Urine Clarity HAZY H, Urine pH 6.0, Ur Specific [place] >= 1.030, Urine Protein 100 H, Urine Ketones NEG, Urine Nitrite NEG, Urine Bilirubin NEG, Urine Urobilinogen 0.2, Ur Leukocyte Esterase NEG, Ur Microscopic SEDIMENT EXAMINED, Urine RBC PACKD H, Urine Crystals RARE [place], Urine Hemoglobin LARGE H, Urine Glucose NEG Microbiology 08/30 1515 URINE ROUT: Urine Culture - RECD Departure Departure Disposition: HOME OR SELF CARE Condition: Stable Clinical Impression Primary Impression: Urinary catheter complication Referrals: ADALID DAILY,DOMINICK Taveras (PCP/Family) Additional Instructions: Follow-up with your urologist this week. Return to the emergency room immediately if inability to drain or any other concerns worsening symptoms. Take Valium as prescribed. Please go over all results of today's visit with your primary care doctor. Contact your primary care doctor to let them know you were here in the emergency room. There may be nonspecific findings which may not be related to your visit today here in the emergency room but may require further evaluation and chronic monitoring by your primary care doctor. If you had a laceration today the chance of foreign body always remains. You should follow-up with your primary care doctor for recheck in 3-5 days for a wound check. If you had an x-ray done there is a chance that a fracture could have been missed on initial read and you should follow-up with your primary care doctor for repeat x-rays if symptoms persist. If your blood pressure was elevated here in the emergency room please have rechecked by her primary care doctor within the next 48 hours by your primary care doctor. If you were prescribed a narcotic here in the emergency room or any type of controlled substances you're not allowed to drive while taking this medication or operate any type of heavy machinery. Narcotics can make you feel lightheaded dizziness nausea and can cause constipation. You may need to bean picker a stool softener. Thank you for choosing [facility] emergency room. Please return to the emergency room immediately if you have any other concerns worsening of symptoms. Departure Forms: Customer Survey General Discharge Information Prescriptions: Current Visit Scripts Diazepam (Valium) 1 TAB PO TID #15 TAB Diazepam (Valium) 1 TAB PO TID #15 TAB (ROSALIND CHOWDHURY) PA/SWAT TEAM MEMBER Co-Sign Statement Statement: ED Attending supervision documentation- [] I saw and evaluated the patient. I have also reviewed all the pertinent lab results and diagnostic results. I agree with the findings and the plan of care as documented in the PA's/SWAT TEAM MEMBER's documentation. [x] I have reviewed the ED Record and agree with the PA's/SWAT TEAM MEMBER's documentation. [] Additions or exceptions (if any) to the PAs/SWAT TEAM MEMBER's note and plan are summarized below: [] (TACOS DAILY,AVELINA Dee)
[2016-08-30 15:36] LABS: ABSOLUTE BASOPHIL COUNT 0.1 /CUMM (0.0-0.2); ABSOLUTE EOSINOPHIL COUNT 0.3 /CUMM (0.0-0.7); ABSOLUTE GRANULOCYTE CT 3.2 /CUMM (1.4-6.5); ABSOLUTE LYMPH COUNT 1.1 /CUMM (1.2-3.4); ABSOLUTE MONOCYTE COUNT 0.5 /CUMM (0.10-0.60); BASOPHIL % 1.2 % (0.0-2.0); EOSINOPHIL % 6.2 % (0-5); HEMATOCRIT 38.4 % (42-52); MEAN CORPUSCULAR HGB 31.6 PG (27.0-31.0); MEAN CORPUSCULAR HGB CONC 33.9 G/DL (33.0-37.0); MEAN CORPUSCULAR VOLUME 93.4 FL (80.0-94.0); MEAN PLATELET VOLUME 7.6 FL (7.4-10.4); PLATELET COUNT 233 /CUMM (130-400); RBC DISTRIBUTION WIDTH 12.9 % (11.5-14.5); RED BLOOD CELL CT 4.11 /CUMM (4.70-6.10); WHITE BLOOD CELL COUNT 5.1 /CUMM (4.8-10.8)
[2016-08-30] MEDS ORDERED: AMOX-CLAV 500-1 EACH PO (15:50)
[2016-08-30] MEDS ORDERED: BUSPIRONE HCL15 M1 PO (15:54)
[2016-08-30] MEDS ORDERED: VALIUM5 M2 PO ×2 (16:36→16:37)
[2016-08-30 16:46] VITALS: BP 128/70
== END 2016-08-30 16:49 ==
LOC: ERH 14:29
PROVIDERS: Physician Assistant Medical
DX: T83.098A Other mechanical complication of other urinary catheter, initial encounter (principal)
CPT/HCPCS: 81001; 87086

== ENCOUNTER 2016-09-06 10:02 | Emergency (ER) | payer OTHER, MEDICARE ==
[~2016-09-06] VITALS: Ht 167.6 cm; Wt 54.4 kg
[~2016-09-06 10:02] MED LIST changes: +AMOX-CLAV 500-1 EACH PO; +BUSPIRONE HCL15 M1 PO; +VALIUM5 M2 PO
--- NOTE | 2016-09-06 10:54 | ED GENERAL ADULT ---
History of Present Illness General Chief Complaint: General Adult Stated Complaint: SUPRA-CATH PROCEDURE 2 WEEKS AGO, NOT FEELING WELL Source: patient, old records Exam Limitations: no limitations Vital Signs & Intake/Output Vital Signs & Intake/Output Vital Signs Date Time Temp Pulse Resp B/P Pulse O2 O2 Flow FiO2 Ox Delivery Rate 09/06 1316 97.0 68 18 136/71 100 Room Air 09/06 1012 97.7 84 20 112/67 97 Room Air ED Intake and Output 09/07 0000 09/06 1200 Intake Total Output Total 700 Balance -700 Output, Urine 700 Patient 120 lb Weight Allergies Coded Allergies: Iodinated Contrast Media - Oral and (IODINATED CONTRAST MEDIA - IV DYE) (GONZALEZ 10/20/15) latex (RASH 08/24/16) morphine (nv 02/09/16) oxycodone (NAUSEA 08/24/16) Uncoded Allergies: OIL BASE PAINT (Severe, LIGHT HEADED 08/22/11) Reconcile Medications Amoxicillin/Potassium Clav (Amox-Clav 500-125 MG Tablet) 500 MG-125 MG TABLET 1 TAB PO BID ANTIBIOTIC (Reported) Aspirin (Aspirin*) 325 MG TABLET 0.5 TAB PO DAILY HEART/BLOOD (Reported) Buspirone HCl 15 MG TABLET 0.5 TAB PO BID TINNITUS (Reported) Diazepam 5 MG TABLET 1 TAB PO TIDPRN PRN SPASMS (Reported) Divalproex Sodium 250 MG TABLET. 1 TAB PO DAILY SEIZURES (Reported) Finasteride (Unknown Strength) TABLET 5 MG PO DAILY BLADDER (Reported) Levetiracetam 500 MG TABLET 1 TAB PO DAILY SEIZURES (Reported) Levetiracetam 500 MG TABLET 2 TAB PO QPM SEIZURES (Reported) Multivitamin (Multi-Day Vitamins) 1 EACH TABLET 1 TAB PO DAILY SUPPLEMENT ( Reported) Phenobarbital 32.4 MG TABLET 1 TAB PO BID Seizures Phenytoin (Dilantin) 100 MG CAPSULE 1 CAP PO QAM SEIZURES (Reported) Phenytoin (Dilantin) 50 MG TAB.CHEW 1 TAB PO QAM SEIZURES (Reported) Triage Note: PT TO ED C/O HEAD/NECK/ABD PAIN. MULTIPLE COMPLAINTS. PT HAS OSBORNE IN PLACE X [address] ANGELES IS UROLOGIST. AFEBRILE. C/O SEEING "FLASHES OF LIGHT, I HOPE I'M NOT STROKING OUT". C/O HOT FLASHES AND TINGLING THROUGHOUT BODY. STATES URINE IS LEAKING OUT AROUND OSBORNE. Triage Nurses Notes Reviewed? yes HPI: Patient is a 65-year-old male presents complaining of abdominal pain, chills, urine leaking around his Osborne catheter, headache, tinnitus. Patient reports that the headache, chills, tinnitus, abdominal pain has been occurring for approximately 2.5 years. Patient has been to the emergency department numerous times and to his primary care doctor will times an reports that he keeps getting "passed around". Patient had a procedure by Dr. Angeles and a Osborne catheter placed on August 22. Patient reports that he is having urine leaking around the Osborne bag and has had to come to the emergency department for irrigation of the Osborne. Abdominal pain is mid abdomen radiating to bilateral sides and suprapubic. Tinnitus is a 10 out of 10 for the past 2.5 years. Patient reports that approximately 2.5 years ago he had a rash to his left upper extremity and then "everything started after that". Patient is having frequent stools, they' re formed, no diarrhea. Patient reports that the frequent stools started after he had a soapsuds enema. (ASHLYN BROWNING) Past History Travel History Traveled to [place] past 21 day No Medical History Any Pertinent Medical History? see below for history Neurological: migraine, seizure, EPILEPSY EENT: NONE Cardiovascular: PALPITATIONS Respiratory: NONE Gastrointestinal: PANCREATITIS Hepatic: CHOLECYSTECTOMY Renal: BRP TURP URETERAL STRICTURES Musculoskeletal: ARTHRITIS L4 COMPRESSION FX Psychiatric: anxiety, depression Endocrine: NONE Blood Disorders: NONE Cancer(s): NONE Other Medical Hx: BPH History of MRSA: No History of VRE: No History of CDIFF: No Surgical History Surgical History: TURP CYSTOSCOPY/URETERAL STRICTURE (02/09) Psychosocial History Who do you live with Patient/Self Services at Home None What is your primary language Jamaican Tobacco Use: Quit >30 days ago ETOH Use: denies use Illicit Drug Use: denies illicit drug use Family History Family History, If Any: MOTHER FH: heart disease FATHER FH: cancer Hx Contributory? No (ASHLYN BROWNING) Review of Systems Review of Systems Constitutional: Reports: chills. Denies: fever. EENTM: Reports: see HPI. Respiratory: Denies: cough, short of breath. Cardiovascular: Denies: chest pain. GI: Reports: abdominal pain. Denies: nausea, vomiting. Genitourinary: Reports: no symptoms. Musculoskeletal: Denies: back pain, neck pain. Skin: Reports: no symptoms. Neurological/Psychological: Reports: see HPI. Hematologic/Endocrine: Reports: no symptoms. Immunologic/Allergic: Reports: no symptoms. (ASHLYN BROWNING) Physical Exam Physical Exam General Appearance: alert, awake Head: atraumatic, normal appearance Eyes: Bilateral: normal appearance, PERRL, EOMI. Ears, Nose, Throat: MILD CERUMEN BILATERALLY. tYMPANIC MEMBRANES NORMAL. Neck: normal inspection, supple, full range of motion Respiratory: normal breath sounds, chest non-tender, no respiratory distress, lungs clear Cardiovascular: regular rate/rhythm Gastrointestinal: normal bowel sounds, soft, mild diffuse abdominal tenderness Back: normal inspection, normal range of motion Extremities: normal inspection, normal capillary refill, normal range of motion Neurologic/Psych: no motor/sensory deficits, awake, alert, oriented x 3 Skin: intact, normal color, warm/dry Lymphatic: no anterior cervical terrie Core Measures ACS in differential dx? No CVA/TIA Diagnosis: No Severe Sepsis Present: No Septic Shock Present: No (ASHLYN BROWNING) Progress Differential Diagnoses I considered the following diagnoses in my evaluation of the patient: Chronic pain, intra-abdominal infection, constipation, small bowel obstruction, perforated viscus, urinary tract infection, renal colic, prostatitis, intracranial bleed, vertigo, electrolyte abnormality, sepsis Plan of Care: Orders Procedure Date/time Status Regular Diet 09/06 L Active LYME TITRE 09/06 1109 Active CULTURE,URINE 09/06 1107 Active BLOOD CULTURE 09/06 1107 Active URINALYSIS 09/06 1107 Complete LIPASE 09/06 1107 Complete DEPAKOTE LEVEL 09/06 1107 Complete COMPREHENSIVE METABOLIC PANEL 09/06 1107 Complete CBC WITHOUT DIFFERENTIAL 09/06 1107 Complete Laboratory Tests 09/06/16 1209: Urine Color STRAW, Urine Clarity HAZY H, Urine pH 6.0, Ur Specific [place]etta 1.010, Urine Protein NEG, Urine Ketones NEG, Urine Nitrite NEG, Urine Bilirubin NEG, Urine Urobilinogen 0.2, Ur Leukocyte Esterase NEG, Ur Microscopic SEDIMENT EXAMINED, Urine RBC 50-75 H, Urine WBC RARE, Ur Epithelial Cells RARE, Urine Crystals 1+ CA OX H, Urine Mucus RARE, Urine Hemoglobin LARGE H, Urine Glucose NEG 09/06/16 1110: Anion Gap 7, Estimated GFR > 60, BUN/Creatinine Ratio 15.0, Glucose 81, Calcium 9.4, Total Bilirubin 0.4, AST 24, ALT 34, Alkaline Phosphatase 133 H, Total Protein 7.2, Albumin 4.2, Globulin 3.0, Albumin/Globulin Ratio 1.4, Lipase 142, CBC w Diff NO MAN DIFF REQ, RBC 4.60 L, MCV 92.5, MCH 31.4 H, RDW 12.6, MPV 7.4, Gran % 73.9, Lymphocytes % 14.9 L, Monocytes % 7.6, Eosinophils % 3.4, Basophils % 0.2, Absolute Granulocytes 4.1, Absolute Lymphocytes 0.8 L, Absolute Monocytes 0.4, Absolute Eosinophils 0.2, Absolute Basophils 0, PUBS MCHC 33.9, Lyme Disease Antibody Pending, Valproic Acid < 10.0 L Microbiology 09/06 1209 URINE ROUT: Urine Culture - RECD 09/06 1130 BLOOD: Blood Culture - RECD 09/06 1110 BLOOD: Blood Culture - RECD 1400: Discussed with Dr. Rhodes: will see patient tomorrow, can discharge on pain medication. 1430: Results of workup discussed with patient. Patient nontoxic appearing, patient eating lunch without difficulty, appears stable for discharge. Discussed following up tomorrow. Patient reports that with his urine leg bag he cannot walk to the office tomorrow. Patient instructed to call Dr. Rhodes tomorrow morning for follow up (RUTH DORANTES,ASHLYN) Diagnostic Imaging: Viewed by Me: CT Scan. Discussed w/RAD: CT Scan. Initial ED EKG: none Comments: PATIENT: VIOLETTE RUSSELL PRESENT AGE: 65 PATIENT ACCOUNT NO: [id number] : 51 LOCATION: [facility] ORDERING PHYSICIAN: ASHLYN DORANTES SERVICE DATE: 09/06/16 EXAM TYPE: CAT - CT HEAD WO IV CONTRAST EXAMINATION: CT HEAD WITHOUT CONTRAST CLINICAL INFORMATION: Severe headache and tinnitus; question hemorrhage or stroke. COMPARISON: Prior brain CT examinations, most recently 08/25/2016. TECHNIQUE: Contiguous axial imaging was performed from the skull base to vertex without intravenous administration of contrast. DLP: 600.71 mGy-cm. FINDINGS: There is no evidence of acute intracranial hemorrhage or territorial infarction. No abnormal mass effect or midline shift is seen. Murillo to white matter differentiation is well preserved. No extra-axial fluid collections are identified. Cerebellar volume loss is redemonstrated. The ventricles are normal in size. There is no abnormal attenuation within the brain parenchyma. The osseous structures and soft tissues are unremarkable. There are long-standing stable small calvarial lucencies, most pronounced towards the vertex. These possibly represent diploic channels or arachnoid granulations and are of doubtful clinical significance. The mastoid air cells and visualized portions of the paranasal sinuses are well aerated. IMPRESSION: No acute intracranial pathology. There is no significant interim change. DICTATED BY: SARA TABARES MD DATE/TIME DICTATED:09/06/161239 DIRECT CARE COUNSELOR:RENE DATE/TIME TRANSCRIBED:09/06/161239 CONFIDENTIAL, DO NOT COPY WITHOUT APPROPRIATE AUTHORIZATION. <Electronically signed in Other Vendor System> SIGNED BY: SARA TABARES MD 09/06/16 1248 PATIENT: VIOLETTE RUSSELL PRESENT AGE: 65 PATIENT ACCOUNT NO: [id number] : 51 LOCATION: [facility] ORDERING PHYSICIAN: ASHLYN DORANTES SERVICE DATE: 09/06/16 EXAM TYPE: CAT - CT ABD & PELVIS W/O IV CONTRAS EXAMINATION: CT ABDOMEN AND PELVIS WITHOUT CONTRAST CLINICAL INFORMATION: Abdominal pain. Chills. COMPARISON: CT abdomen and pelvis of 08/24/2016, 05/22/2016 and multiple prior studies back to 10/10/2010. Renal ultrasound of 08/12/2016. Chest x-ray of 10/18/2010. TECHNIQUE: Multidetector volumetric imaging was performed from the superior aspect of the liver through the pubic symphysis. Sagittal and coronal reformatted images were obtained on the technologist's workstation. DLP: 223.31 mGy-cm. FINDINGS: LUNG BASES: The visualized lung bases are unremarkable. A 0.3 cm nodule versus endon vessel seen on the printed circuit board reworker film in the left perihilar region is a stable finding when compared to previous chest x-ray of 10/18/2010. LIVER, GALLBLADDER, AND BILIARY TREE: The liver is normal in size, shape, and attenuation. No focal hepatic lesion or biliary ductal dilatation is present. The gallbladder is not seen, either surgically absent or significantly contracted. No surgical clips are noted in the gallbladder region. PANCREAS: Unremarkable. SPLEEN: Unremarkable. ADRENAL GLANDS: Unremarkable. KIDNEYS AND URETERS: The kidneys are normal in size, shape and attenuation. A 2.2 cm cyst in the right mid kidney anteromedially and a 2.3 cm peripelvic cyst in the right mid kidney are stable findings compared to previous studies. No evidence of from radiopaque urinary tract calculi, hydroureteronephrosis or perinephric stranding. BLADDER: The bladder is somewhat underdistended. There is a Osborne catheter in place. There is mild diffuse bladder wall thickening. No evidence of bladder wall calcification or focal mass. GASTROINTESTINAL TRACT: Jotomeds-ew-ryhzl volume of stool is noted throughout the colon. No evidence of colonic wall thickening or pericolonic fat stranding. An appendix is not clearly identified however there are no inflammatory changes in the expected location of the appendix. The small bowel loops are not dilated. The stomach is decompressed. PERITONEAL CAVITY: No evidence of free intraperitoneal air or fluid. ABDOMINAL WALL: No significant hernia is appreciated. LYMPH NODES: There are borderline bilateral inguinal lymph nodes measuring up to 1 cm in short axis, not significantly changed compared to previous studies. VASCULAR: Unremarkable. PELVIC VISCERA: The prostate is mildly prominent in size measuring 5 cm in transverse dimension. Seminal vesicles are unremarkable. OSSEOUS STRUCTURES: There is diffuse osteopenia of the spine. Moderate central inferior and superior endplate compressions of L4 is a stable finding compared to last study. No acute or suspicious osseous abnormality. IMPRESSION: 1. No acute abnormality. 2. Hhrrmqpb-op-floco volume stool in the colon. No evidence of abnormal bowel dilatation or bowel obstruction. 3. Stable right renal cysts. 4. Mild prostatomegaly. Mild diffuse bladder wall thickening is a stable finding and likely related to underlying prostatomegaly. DICTATED BY: ELROY ESTEBAN MD DATE/TIME DICTATED:09/06/161240 DIRECT CARE COUNSELOR:RENE DATE/TIME TRANSCRIBED:09/06/161240 CONFIDENTIAL, DO NOT COPY WITHOUT APPROPRIATE AUTHORIZATION. <Electronically signed in Other Vendor System> SIGNED BY: ELROY ESTEBAN MD 09/06/16 2115 (ASHLYN BROWNING) Departure Departure Time of Disposition: 6 Disposition: HOME OR SELF CARE Condition: Stable Clinical Impression Primary Impression: Constipation Qualifiers: Constipation type: unspecified constipation type Qualified Code: K59.00 - Constipation, unspecified Secondary Impressions: Headache Qualifiers: Headache type: unspecified Headache chronicity pattern: acute headache Intractability: not intractable Qualified Code: R51 - Headache Tinnitus Qualifiers: Laterality: bilateral Qualified Code: H93.13 - Tinnitus, bilateral Referrals: ADALID DAILY,DOMINICK Taveras (PCP/Family) Additional Instructions: Follow-up with your primary doctor tomorrow. Call at 9 AM tomorrow morning. Follow-up with your urologist next week as scheduled. Take a fiber supplement such as Metamucil to aid with bowel movements and the constipation seen on the CT scan. Departure Forms: Customer Survey General Discharge Information (ASHLYN BROWNING) PA/PATIENT SAFETY MANAGER Co-Sign Statement Statement: ED Attending supervision documentation- [] I saw and evaluated the patient. I have also reviewed all the pertinent lab results and diagnostic results. I agree with the findings and the plan of care as documented in the PA's/PATIENT SAFETY MANAGER's documentation. [X] I have reviewed the ED Record and agree with the PA's/PATIENT SAFETY MANAGER's documentation. [] Additions or exceptions (if any) to the PAs/PATIENT SAFETY MANAGER's note and plan are summarized below: [] (JASMEET DAILY,CRISTI) Critical Care Note Critical Care Note Critical Care Time: non-applicable (ASHLYN BROWNING)
[2016-09-06] MEDS ORDERED: DIAZEPAM5 M1 PO (11:09)
[2016-09-06 11:24] LABS: ABSOLUTE BASOPHIL COUNT 0 /CUMM (0.0-0.2); ABSOLUTE EOSINOPHIL COUNT 0.2 /CUMM (0.0-0.7); ABSOLUTE GRANULOCYTE CT 4.1 /CUMM (1.4-6.5); ABSOLUTE LYMPH COUNT 0.8 /CUMM (1.2-3.4); ABSOLUTE MONOCYTE COUNT 0.4 /CUMM (0.10-0.60); BASOPHIL % 0.2 % (0.0-2.0); EOSINOPHIL % 3.4 % (0-5); GRANULOCYTE % 73.9 % (42.2-75.2); HEMATOCRIT 42.6 % (42-52); MEAN CORPUSCULAR HGB 31.4 PG (27.0-31.0); MEAN CORPUSCULAR HGB CONC 33.9 G/DL (33.0-37.0); MEAN CORPUSCULAR VOLUME 92.5 FL (80.0-94.0); MEAN PLATELET VOLUME 7.4 FL (7.4-10.4); PLATELET COUNT 268 /CUMM (130-400); RBC DISTRIBUTION WIDTH 12.6 % (11.5-14.5); WHITE BLOOD CELL COUNT 5.6 /CUMM (4.8-10.8)
--- NOTE | 2016-09-06 12:49 | CT SCAN REPORT ---
EXAMINATION: CT HEAD WITHOUT CONTRAST CLINICAL INFORMATION: Severe headache and tinnitus; question hemorrhage or stroke. COMPARISON: Prior brain CT examinations, most recently 08/25/2016. TECHNIQUE: Contiguous axial imaging was performed from the skull base to vertex without intravenous administration of contrast. DLP: 600.71 mGy-cm. FINDINGS: There is no evidence of acute intracranial hemorrhage or territorial infarction. No abnormal mass effect or midline shift is seen. Murillo to white matter differentiation is well preserved. No extra-axial fluid collections are identified. Cerebellar volume loss is redemonstrated. The ventricles are normal in size. There is no abnormal attenuation within the brain parenchyma. The osseous structures and soft tissues are unremarkable. There are long-standing stable small calvarial lucencies, most pronounced towards the vertex. These possibly represent diploic channels or arachnoid granulations and are of doubtful clinical significance. The mastoid air cells and visualized portions of the paranasal sinuses are well aerated. IMPRESSION: No acute intracranial pathology. There is no significant interim change.
[2016-09-06 13:16] VITALS: BP 136/71
--- NOTE | 2016-09-06 13:35 | CT SCAN REPORT ---
EXAMINATION: CT ABDOMEN AND PELVIS WITHOUT CONTRAST CLINICAL INFORMATION: Abdominal pain. Chills. COMPARISON: CT abdomen and pelvis of 08/24/2016, 05/22/2016 and multiple prior studies back to 10/10/2010. Renal ultrasound of 08/12/2016. Chest x-ray of 10/18/2010. TECHNIQUE: Multidetector volumetric imaging was performed from the superior aspect of the liver through the pubic symphysis. Sagittal and coronal reformatted images were obtained on the technologist's workstation. DLP: 223.31 mGy-cm. FINDINGS: LUNG BASES: The visualized lung bases are unremarkable. A 0.3 cm nodule versus endon vessel seen on the supervisor last model department film in the left perihilar region is a stable finding when compared to previous chest x-ray of 10/18/2010. LIVER, GALLBLADDER, AND BILIARY TREE: The liver is normal in size, shape, and attenuation. No focal hepatic lesion or biliary ductal dilatation is present. The gallbladder is not seen, either surgically absent or significantly contracted. No surgical clips are noted in the gallbladder region. PANCREAS: Unremarkable. SPLEEN: Unremarkable. ADRENAL GLANDS: Unremarkable. KIDNEYS AND URETERS: The kidneys are normal in size, shape and attenuation. A 2.2 cm cyst in the right mid kidney anteromedially and a 2.3 cm peripelvic cyst in the right mid kidney are stable findings compared to previous studies. No evidence of from radiopaque urinary tract calculi, hydroureteronephrosis or perinephric stranding. BLADDER: The bladder is somewhat underdistended. There is a Mosher catheter in place. There is mild diffuse bladder wall thickening. No evidence of bladder wall calcification or focal mass. GASTROINTESTINAL TRACT: Sxwajago-tj-oiqgm volume of stool is noted throughout the colon. No evidence of colonic wall thickening or pericolonic fat stranding. An appendix is not clearly identified however there are no inflammatory changes in the expected location of the appendix. The small bowel loops are not dilated. The stomach is decompressed. PERITONEAL CAVITY: No evidence of free intraperitoneal air or fluid. ABDOMINAL WALL: No significant hernia is appreciated. LYMPH NODES: There are borderline bilateral inguinal lymph nodes measuring up to 1 cm in short axis, not significantly changed compared to previous studies. VASCULAR: Unremarkable. PELVIC VISCERA: The prostate is mildly prominent in size measuring 5 cm in transverse dimension. Seminal vesicles are unremarkable. OSSEOUS STRUCTURES: There is diffuse osteopenia of the spine. Moderate central inferior and superior endplate compressions of L4 is a stable finding compared to last study. No acute or suspicious osseous abnormality. IMPRESSION: 1. No acute abnormality. 2. Cpplzzee-ar-ywukk volume stool in the colon. No evidence of abnormal bowel dilatation or bowel obstruction. 3. Stable right renal cysts. 4. Mild prostatomegaly. Mild diffuse bladder wall thickening is a stable finding and likely related to underlying prostatomegaly.
== END 2016-09-06 14:58 ==
LOC: ERH 10:02
PROVIDERS: Physician Assistant
DX: K59.00 Constipation, unspecified (principal); R51 Headache; H93.19 Tinnitus, unspecified ear
CPT/HCPCS: 86618; 74176; 81001; 87040; 87086

== ENCOUNTER 2016-09-20 17:17 | Emergency (ER) | payer OTHER, MEDICARE ==
[~2016-09-20] VITALS: Ht 167.6 cm; Wt 63.5 kg
[~2016-09-20 17:17] MED LIST changes: +DIAZEPAM5 M1 PO
--- NOTE | 2016-09-20 19:58 | RADIOLOGY REPORT ---
EXAMINATION: XR CHEST CLINICAL INFORMATION: Chest pain. COMPARISON: Chest x-ray 01/22/2017 TECHNIQUE: 2 views of the chest were obtained. FINDINGS: No significant abnormality is noted involving the heart, lungs, mediastinum, bony thorax or soft tissues. Dextroscoliosis of dorsal spine. IMPRESSION: Normal chest.
[2016-09-20 20:06] LABS: ABSOLUTE BASOPHIL COUNT 0 /CUMM (0.0-0.2); ABSOLUTE EOSINOPHIL COUNT 0.3 /CUMM (0.0-0.7); ABSOLUTE GRANULOCYTE CT 5.3 /CUMM (1.4-6.5); ABSOLUTE LYMPH COUNT 1.2 /CUMM (1.2-3.4); ABSOLUTE MONOCYTE COUNT 0.9 /CUMM (0.10-0.60); BASOPHIL % 0.5 % (0.0-2.0); GRANULOCYTE % 67.8 % (42.2-75.2); HEMATOCRIT 39.2 % (42-52); MEAN CORPUSCULAR HGB 31.3 PG (27.0-31.0); MEAN CORPUSCULAR HGB CONC 33.8 G/DL (33.0-37.0); MEAN CORPUSCULAR VOLUME 92.5 FL (80.0-94.0); MEAN PLATELET VOLUME 7.4 FL (7.4-10.4); PLATELET COUNT 250 /CUMM (130-400); RBC DISTRIBUTION WIDTH 12.8 % (11.5-14.5); RED BLOOD CELL CT 4.24 /CUMM (4.70-6.10); WHITE BLOOD CELL COUNT 7.8 /CUMM (4.8-10.8)
--- NOTE | 2016-09-20 20:06 | ED GENERAL ADULT ---
History of Present Illness General Chief Complaint: General Adult Stated Complaint: ABD PAIN, VOMITTING, FEVER Source: patient Exam Limitations: no limitations Vital Signs & Intake/Output Vital Signs & Intake/Output Vital Signs Date Time Temp Pulse Resp B/P Pulse O2 O2 Flow FiO2 Ox Delivery Rate 09/20 2215 97.9 87 18 116/70 98 Room Air Room Air 09/20 1723 97.6 99 16 114/72 98 Room Air ED Intake and Output 09/21 0000 09/20 1200 Intake Total 1000 Output Total Balance 1000 Intake, IV 1000 Patient 140 lb Weight Allergies Coded Allergies: Iodinated Contrast Media - Oral and (IODINATED CONTRAST MEDIA - IV DYE) (GONZALEZ 10/20/15) latex (RASH 08/24/16) morphine (nv 02/09/16) oxycodone (NAUSEA 08/24/16) Uncoded Allergies: OIL BASE PAINT (Severe, LIGHT HEADED 08/22/11) Triage Note: PRESENTS TO ED FOR EVALUATION OF NAUSEA AND ABDOMINAL PAIN WITH CHILLS AND INTERMITTENT FEVER. THE SYMPTOMS BEGAN APPROXIMATELY 3 WEEKS AGO AND HAS BEEN INTERMITTENT IN NATURE. Triage Nurses Notes Reviewed? yes HPI: This patient is a 65-year-old male who presented to the emergency department today for multiple complaints. He reported that he has had tinnitus since the . He reported that he has had nausea, "for years as well as a feeling of coldness, "for years." He reported that he is seen many specialists but, "they all just blew me off." The patient reported of the last day he has had increased nausea and no vomiting. He reported tactile fevers and chills. The patient reported that his tinnitus has been getting worse. The patient reported some intermittent 4 out of 10, sharp chest pain with no provoking or palliative factors. He reported that it lasts for seconds. The pain is nonradiating and located in the left side of his chest. He also reported intermittent abdominal pain in the upper abdomen. He denied any headaches, visual changes, jaw pain, arm pain, numbness or tingling in his extremities. (MARC HARVEY,NAZ) Reconcile Medications Amoxicillin/Potassium Clav (Amox-Clav 500-125 MG Tablet) 500 MG-125 MG TABLET 1 TAB PO BID ANTIBIOTIC (Reported) Aspirin (Aspirin*) 325 MG TABLET 0.5 TAB PO DAILY HEART/BLOOD (Reported) Buspirone HCl 15 MG TABLET 0.5 TAB PO BID TINNITUS (Reported) Cephalexin (Keflex) 500 MG CAPSULE 1 CAP PO TID SKIN INFECTION Diazepam 5 MG TABLET 1 TAB PO TIDPRN PRN SPASMS (Reported) Divalproex Sodium 250 MG TABLET.DR 1 TAB PO DAILY SEIZURES (Reported) Finasteride (Unknown Strength) TABLET 5 MG PO DAILY BLADDER (Reported) Levetiracetam 500 MG TABLET 1 TAB PO DAILY SEIZURES (Reported) Levetiracetam 500 MG TABLET 2 TAB PO QPM SEIZURES (Reported) Multivitamin (Multi-Day Vitamins) 1 EACH TABLET 1 TAB PO DAILY SUPPLEMENT ( Reported) Ondansetron (Zofran Odt) 4 MG TAB.RAPDIS 1 TAB SL TID PRN NAUSEA Peg 3350/Na Sulf,Bicarb,Cl/KCl (Golytely Packet) 227.1-21.5 POWD.PACK 1 U PO AD PRN STOOL BURDEN Phenobarbital 32.4 MG TABLET 1 TAB PO BID Seizures Phenytoin (Dilantin) 100 MG CAPSULE 1 CAP PO QAM SEIZURES (Reported) Phenytoin (Dilantin) 50 MG TAB.CHEW 1 TAB PO QAM SEIZURES (Reported) (JASMEET DAILY,CRISTI) Past History Travel History Traveled to [place] past 21 day No Medical History Any Pertinent Medical History? see below for history Neurological: migraine, seizure, EPILEPSY EENT: NONE Cardiovascular: PALPITATIONS Respiratory: NONE Gastrointestinal: PANCREATITIS Hepatic: CHOLECYSTECTOMY Renal: BRP TURP URETERAL STRICTURES Musculoskeletal: ARTHRITIS L4 COMPRESSION FX Psychiatric: anxiety, depression Endocrine: NONE Blood Disorders: NONE Cancer(s): NONE Other Medical Hx: BPH History of MRSA: No History of VRE: No History of CDIFF: No Surgical History Surgical History: TURP CYSTOSCOPY/URETERAL STRICTURE (02/09) Psychosocial History Who do you live with Patient/Self Services at Home None What is your primary language Polish Tobacco Use: Never used Family History Family History, If Any: MOTHER FH: heart disease FATHER FH: cancer Hx Contributory? No (MARC HARVEY,NAZ) Review of Systems Review of Systems Constitutional: Reports: see HPI. EENTM: Reports: no symptoms. Respiratory: Reports: no symptoms. Cardiovascular: Reports: see HPI. GI: Reports: see HPI. Genitourinary: Reports: no symptoms. Musculoskeletal: Reports: no symptoms. Skin: Reports: no symptoms. Neurological/Psychological: Reports: no symptoms. All Other Systems: Reviewed and Negative (MARC HARVEY,NAZ) Physical Exam Physical Exam General Appearance: well developed/nourished, no apparent distress, alert, awake Comments: Well-developed well-nourished person in no acute distress HEENT: Normal EENT exam, head normocephalic/atraumatic, moist mucous membranes Pupils equally round and reactive to light. Neck: Supple, no lymphadenopathy Back: Normal gait. Normal inspection Cardiovascular: Regular rate and rhythm with no murmurs, rubs, or gallops. No carotid bruits Respiratory: Chest nontender. No respiratory distress. Breath sounds clear to auscultation bilaterally with no wheezes, rales, rhonchi Abdomen: Soft and nondistended. Normoactive bowel sounds. Tenderness to palpation in the left upper quadrant with no rebound or guarding. No peritoneal signs. No McBurney's point tenderness. Knapp sign no organomegaly appreciated Extremity: No edema, no calf tenderness to palpation, normal and equal pulses. Neuro: Alert oriented x3, cranial nerves II through XII grossly intact. Skin: No appreciable rash on exposed skin, skin is warm and dry. Psych: Mood and affect is normal Core Measures ACS in differential dx? Yes CVA/TIA Diagnosis: No Severe Sepsis Present: No Septic Shock Present: No (MARC HARVEY,NAZ) Progress Differential Diagnoses I considered the following diagnoses in my evaluation of the patient: [Influenza , gastroenteritis, chronic pain, hypertension, Mnire's disease, vertigo] Plan of Care: Orders Procedure Date/time Status BLOOD CULTURE 09/20 1950 Active THYROID STIMULATING HORMONE 09/20 1912 Complete TROPONIN LEVEL 09/20 1912 Complete LIPASE 09/20 1912 Complete FREE T4 09/20 1912 Complete DIRECT BILIRUBIN 09/20 1912 Complete COMPREHENSIVE METABOLIC PANEL 09/20 1912 Complete CBC WITHOUT DIFFERENTIAL 09/20 1912 Complete AMYLASE 09/20 1912 Complete EKG 09/20 1912 Active Laboratory Tests 09/20/161950: Anion Gap 9, Estimated GFR > 60, BUN/Creatinine Ratio 14.4, Glucose 89, Calcium 9.3, Total Bilirubin 0.3, Direct Bilirubin 0.3, AST 21, ALT 23, Alkaline Phosphatase 125, Troponin I < 0.01, Total Protein 6.9, Albumin 3.8, Globulin 3.1 , Albumin/Globulin Ratio 1.2, Amylase 69, Lipase 117, TSH 2.400, Free T4 1.28, CBC w Diff NO MAN DIFF REQ, RBC 4.24 L, MCV 92.5, MCH 31.3 H, RDW 12.8, MPV 7.4, Gran % 67.8, Lymphocytes % 15.7 L, Monocytes % 12.0 H, Eosinophils % 4.0, Basophils % 0.5, Absolute Granulocytes 5.3, Absolute Lymphocytes 1.2, Absolute Monocytes 0.9 H, Absolute Eosinophils 0.3, Absolute Basophils 0, PUBS MCHC 33.8 Microbiology 09/20 2029 BLOOD: Blood Culture - RECD 09/20 1950 BLOOD: Blood Culture - RECD Diagnostic Imaging: Viewed by Me: Radiology Read, CT Scan. Discussed w/RAD: Radiology Read, CT Scan. Radiology Impression: PATIENT: VIOLETTE RUSSELL PRESENT AGE: 65 PATIENT ACCOUNT NO: [id number] : 51 LOCATION: [facility] ORDERING PHYSICIAN: NAZ TRAN PA-C SERVICE DATE: 09/20/16 EXAM TYPE: CAT - CT ABD & PELVIS W/O IV CONTRAS EXAMINATION: CT ABDOMEN AND PELVIS WITHOUT CONTRAST CLINICAL INFORMATION: 65-year-old male with abdominal pain. COMPARISON: CT of the abdomen and pelvis done 09/06/2016. (Increased burden of formed stool) . TECHNIQUE: Multidetector volumetric imaging was performed from the superior aspect of the liver through the pubic symphysis. Sagittal and coronal reformatted images were obtained on the technologist's workstation. DLP: 229 mGy -cm. FINDINGS: Intermediate Project Manager view demonstrates no improvement in the significant burden of formed stool in the right and transverse colon. There is mild dilatation of the segments. No impaction is seen. LUNG BASES: The visualized lung bases are unremarkable. LIVER, GALLBLADDER, AND BILIARY TREE: Normal. The gallbladder is not visualized. PANCREAS: Unremarkable. SPLEEN: Unremarkable. ADRENAL GLANDS: Unremarkable. KIDNEYS AND URETERS: No hydronephrosis or stone formation. Right renal cyst. No change. BLADDER: Unchanged. GASTROINTESTINAL TRACT: The stomach is distended by food. Small intestine is normal. As mentioned above, there is considerable formed stool in the right and transverse colon. No obstruction is suspected. Of particular note is evidence of pericolonic inflammatory reaction in the region of the ascending colon. This could be a harbinger of stercoral colitis. The sigmoid colon is redundant. There is no free air or free fluid. ABDOMINAL WALL: No significant hernia is appreciated. LYMPH NODES: No change. VASCULAR: No change. PELVIC VISCERA: No change. OSSEOUS STRUCTURES: No significant change. IMPRESSION: Considerable burden of formed stool particularly in the right and transverse colon. Early findings of periaortic colonic inflammatory reaction in the right colon which could be a harbinger of stercoral colitis. DICTATED BY: SKYLER HERNDON MD DATE/TIME DICTATED:09/20/162035 COMPRESSED AIR PILE DRIVER OPERATOR:RENE DATE/TIME TRANSCRIBED:09/20/162035 CONFIDENTIAL, DO NOT COPY WITHOUT APPROPRIATE AUTHORIZATION. <Electronically signed in Other Vendor System> SIGNED BY: SKYLER HERNDON MD 09/20/162054 CXR Impression: PATIENT: VIOLETTE RUSSELL PRESENT AGE: 65 PATIENT ACCOUNT NO: [id number] : 51 LOCATION: [facility] ORDERING PHYSICIAN: NAZ TRAN PA-C SERVICE DATE: 09/20/16 EXAM TYPE: RAD - XRY-CHEST XRAY, PA AND LATERAL EXAMINATION: XR CHEST CLINICAL INFORMATION: Chest pain. COMPARISON: Chest x-ray 01/22/2017 TECHNIQUE: 2 views of the chest were obtained. FINDINGS: No significant abnormality is noted involving the heart, lungs, mediastinum, bony thorax or soft tissues. Dextroscoliosis of dorsal spine. IMPRESSION: Normal chest. DICTATED BY: ALETHEA BYRD MD DATE/TIME DICTATED :09/20/161953 COMPRESSED AIR PILE DRIVER OPERATOR:RENE DATE/TIME TRANSCRIBED:09/20/161953 CONFIDENTIAL, DO NOT COPY WITHOUT APPROPRIATE AUTHORIZATION. < Electronically signed in Other Vendor System> SIGNED BY: ALETHEA BYRD MD 1957 Initial ED EKG: normal axis, normal intervals, normal sinus rhythm, no ST T wave changes, 69 BPM (MARC HARVEY,NAZ) Departure Departure Disposition: HOME OR SELF CARE Condition: Stable Clinical Impression Primary Impression: Nausea Secondary Impressions: Sensation of feeling cold Referrals: TORSTEN DAILY,OLIVER CORDOBA MD,DOMINICK Taveras (PCP/Family) Additional Instructions: FOLLOW UP WITH THE NEUROLOGIST. STAY HYDRATED. RETURN FOR ANY WORSENING SYMPTOMS. Departure Forms: Customer Survey General Discharge Information Prescriptions: Current Visit Scripts Ondansetron (Zofran Odt) 1 TAB SL TID PRN NAUSEA #10 TAB Peg 3350/Na Sulf,Bicarb,Cl/KCl (Golytely Packet) 1 U PO AD PRN STOOL BURDEN 7 Days Cephalexin (Keflex) 1 CAP PO TID #21 CAP (NAZ TRAN PA-C) PA/FAST FOOD ATTENDANT Co-Sign Statement Statement: ED Attending supervision documentation- [] I saw and evaluated the patient. I have also reviewed all the pertinent lab results and diagnostic results. I agree with the findings and the plan of care as documented in the PA's/FAST FOOD ATTENDANT's documentation. [X] I have reviewed the ED Record and agree with the PA's/FAST FOOD ATTENDANT's documentation. [] Additions or exceptions (if any) to the PAs/FAST FOOD ATTENDANT's note and plan are summarized below: [] (JASMEET DAILY,CRISTI) Critical Care Note Critical Care Note Critical Care Time: non-applicable (MARC HARVEY,NAZ)
[2016-09-20] MEDS ORDERED: ZOFRAN ODT4 M1 SL (20:51)
--- NOTE | 2016-09-20 20:55 | CT SCAN REPORT ---
EXAMINATION: CT ABDOMEN AND PELVIS WITHOUT CONTRAST CLINICAL INFORMATION: 65-year-old male with abdominal pain. COMPARISON: CT of the abdomen and pelvis done 09/06/2016. (Increased burden of formed stool). TECHNIQUE: Multidetector volumetric imaging was performed from the superior aspect of the liver through the pubic symphysis. Sagittal and coronal reformatted images were obtained on the technologist's workstation. DLP: 229 mGy-cm. FINDINGS: Risk Control Analyst view demonstrates no improvement in the significant burden of formed stool in the right and transverse colon. There is mild dilatation of the segments. No impaction is seen. LUNG BASES: The visualized lung bases are unremarkable. LIVER, GALLBLADDER, AND BILIARY TREE: Normal. The gallbladder is not visualized. PANCREAS: Unremarkable. SPLEEN: Unremarkable. ADRENAL GLANDS: Unremarkable. KIDNEYS AND URETERS: No hydronephrosis or stone formation. Right renal cyst. No change. BLADDER: Unchanged. GASTROINTESTINAL TRACT: The stomach is distended by food. Small intestine is normal. As mentioned above, there is considerable formed stool in the right and transverse colon. No obstruction is suspected. Of particular note is evidence of pericolonic inflammatory reaction in the region of the ascending colon. This could be a harbinger of stercoral colitis. The sigmoid colon is redundant. There is no free air or free fluid. ABDOMINAL WALL: No significant hernia is appreciated. LYMPH NODES: No change. VASCULAR: No change. PELVIC VISCERA: No change. OSSEOUS STRUCTURES: No significant change. IMPRESSION: Considerable burden of formed stool particularly in the right and transverse colon. Early findings of periaortic colonic inflammatory reaction in the right colon which could be a harbinger of stercoral colitis.
[2016-09-20] MEDS ORDERED: KEFLEX500 M1 PO (21:12)
[2016-09-20] MEDS ORDERED: GOLYTELY PACKE1 EACH PO (21:12)
[2016-09-20 22:15] VITALS: BP 116/70
== END 2016-09-20 22:16 ==
LOC: ERH 17:17
PROVIDERS: Physician Assistant
DX: R11.0 Nausea (principal); R20.8 Other disturbances of skin sensation; R50.9 Fever, unspecified; R07.9 Chest pain, unspecified
CPT/HCPCS: 74176; 87040; 93005; 93010; 96361; 96374; J2405

== ENCOUNTER 2016-09-25 03:49 | Emergency (ER) | payer OTHER, MEDICARE ==
[~2016-09-25] VITALS: Ht 157.5 cm; Wt 54.4 kg
[~2016-09-25 03:49] MED LIST changes: +GOLYTELY PACKE1 EACH PO; +KEFLEX500 M1 PO
--- NOTE | 2016-09-25 03:59 | ED GI/GU/ABDOMINAL COMPLAINT ---
History of Present Illness General Chief Complaint: General Adult Stated Complaint: BIBA PT C/O CONSTIPATION Source: patient Exam Limitations: no limitations Vital Signs & Intake/Output Vital Signs & Intake/Output Vital Signs Date Time Temp Pulse Resp B/P Pulse O2 O2 Flow FiO2 Ox Delivery Rate 09/25 0400 98.2 95 18 132/74 97 Room Air Allergies Coded Allergies: Iodinated Contrast Media - Oral and (IODINATED CONTRAST MEDIA - IV DYE) (GONZALEZ 10/20/15) latex (RASH 08/24/16) morphine (nv 02/09/16) oxycodone (NAUSEA 08/24/16) Uncoded Allergies: OIL BASE PAINT (Severe, LIGHT HEADED 08/22/11) Reconcile Medications Amoxicillin/Potassium Clav (Amox-Clav 500-125 MG Tablet) 500 MG-125 MG TABLET 1 TAB PO BID ANTIBIOTIC (Reported) Aspirin (Aspirin*) 325 MG TABLET 0.5 TAB PO DAILY HEART/BLOOD (Reported) Buspirone HCl 15 MG TABLET 0.5 TAB PO BID TINNITUS (Reported) Cephalexin (Keflex) 500 MG CAPSULE 1 CAP PO TID SKIN INFECTION Diazepam 5 MG TABLET 1 TAB PO TIDPRN PRN SPASMS (Reported) Divalproex Sodium 250 MG TABLET.DR 1 TAB PO DAILY SEIZURES (Reported) Finasteride (Unknown Strength) TABLET 5 MG PO DAILY BLADDER (Reported) Levetiracetam 500 MG TABLET 1 TAB PO DAILY SEIZURES (Reported) Levetiracetam 500 MG TABLET 2 TAB PO QPM SEIZURES (Reported) Multivitamin (Multi-Day Vitamins) 1 EACH TABLET 1 TAB PO DAILY SUPPLEMENT ( Reported) Ondansetron (Zofran Odt) 4 MG TAB.RAPDIS 1 TAB SL TID PRN NAUSEA Peg 3350/Na Sulf,Bicarb,Cl/KCl (Golytely Solution) 236-22.74G SOLN.RECON 1 KIT PO X1 PRN CONSTIPATION Peg 3350/Na Sulf,Bicarb,Cl/KCl (Golytely Packet) 227.1-21.5 POWD.PACK 1 U PO AD PRN STOOL BURDEN Phenobarbital 32.4 MG TABLET 1 TAB PO BID Seizures Phenytoin (Dilantin) 100 MG CAPSULE 1 CAP PO QAM SEIZURES (Reported) Phenytoin (Dilantin) 50 MG TAB.CHEW 1 TAB PO QAM SEIZURES (Reported) Triage Nurses Notes Reviewed? yes Onset: Gradual Duration: hour(s): Timing: recent history Quality/Severity: cramping Location: generalized abdomen Radiation: no radiation Activities at Onset: none Prior Abdominal Problems: none Modifying Factors: Worsens With: palpation. Associated Symptoms: abdominal pain, diarrhea HPI: 65-year-old gentleman presents with diffuse abdominal pain since 8 to 10:00 last night. He notes crampy abdominal tenderness, increased bowel movements, occasional chills, mild nausea but no vomiting. He states that he has no dysuria, no fever, no chest pain, no shortness of breath. Past History Medical History Any Pertinent Medical History? see below for history Neurological: migraine, seizure, EPILEPSY EENT: NONE Cardiovascular: PALPITATIONS Respiratory: NONE Gastrointestinal: PANCREATITIS Hepatic: CHOLECYSTECTOMY Renal: BRP TURP URETERAL STRICTURES Musculoskeletal: ARTHRITIS L4 COMPRESSION FX Psychiatric: anxiety, depression Endocrine: NONE Blood Disorders: NONE Cancer(s): NONE Other Medical Hx: BPH History of MRSA: No History of VRE: No History of CDIFF: No Surgical History Surgical History: TURP CYSTOSCOPY/URETERAL STRICTURE (02/09) Psychosocial History Who do you live with Patient/Self Services at Home None What is your primary language Tajik Family History Family History, If Any: MOTHER FH: heart disease FATHER FH: cancer Hx Contributory? No Review of Systems Review of Systems Constitutional: Reports: no symptoms. EENTM: Reports: no symptoms. Respiratory: Reports: no symptoms. Cardiovascular: Reports: no symptoms. GI: Reports: no symptoms. Genitourinary: Reports: no symptoms. Musculoskeletal: Reports: no symptoms. Skin: Reports: no symptoms. Neurological/Psychological: Reports: no symptoms. Hematologic/Endocrine: Reports: no symptoms. Immunologic/Allergic: Reports: no symptoms. All Other Systems: Reviewed and Negative Physical Exam Physical Exam General Appearance: well developed/nourished, mild distress, moderate distress Head: atraumatic, normal appearance Eyes: Bilateral: normal appearance. Ears, Nose, Throat, Mouth: hearing grossly normal Neck: normal inspection, supple, full range of motion, normal alignment Respiratory: normal breath sounds, chest non-tender, no respiratory distress, quiet respiration, lungs clear Cardiovascular: regular rate/rhythm Gastrointestinal: normal bowel sounds, soft, DIFFUSE TENDERNESS AT LLQ AND SUPRAPUBIC REGION Rectal: normal inspection, normal rectal tone, heme negative stool, MILD- MODERATE TENDERNESS ON PROSTATE Back: normal inspection, normal range of motion Extremities: normal range of motion Neurologic/Psych: no motor/sensory deficits, awake, alert, oriented x 3 Skin: intact, normal color, warm/dry Core Measures ACS in differential dx? No Severe Sepsis Present: No Septic Shock Present: No Progress Differential Diagnosis: COLITIS VS PROSTATITIS VS UTI VS OTHER. Plan of Care: Orders Procedure Date/time Status TROPONIN LEVEL 09/25 399 Complete LIPASE 09/25 399 Complete LACTIC ACID 09/25 399 Complete HEPATIC FUNCTION PANEL 09/25 399 Complete CBC WITHOUT DIFFERENTIAL 09/25 399 Complete BASIC METABOLIC PANEL 09/25 399 Complete AMYLASE 09/25 399 Complete EKG 09/25 399 Active Laboratory Tests 09/25/16 0426: Anion Gap 9, Estimated GFR > 60, BUN/Creatinine Ratio 12.2, Glucose 84, Lactic Acid 1.0, Calcium 9.5, Total Bilirubin 0.4, Direct Bilirubin 0.3, AST 27, ALT 31 , Alkaline Phosphatase 157 H, Troponin I < 0.01, Total Protein 7.4, Albumin 4.2 , Amylase 87, Lipase 151, CBC w Diff NO MAN DIFF REQ, RBC 4.52 L, MCV 92.7, MCH 31.0, RDW 12.6, MPV 7.6, Gran % 65.2, Lymphocytes % 20.4 L, Monocytes % 9.3, Eosinophils % 4.5, Basophils % 0.6, Absolute Granulocytes 4.4, Absolute Lymphocytes 1.4, Absolute Monocytes 0.6, Absolute Eosinophils 0.3, Absolute Basophils 0, PUBS MCHC 33.4 Diagnostic Imaging: Viewed by Me: CT Scan. Discussed w/RAD: CT Scan. Radiology Impression: ABD/PELVIC CT... POSSIBLY MILD STERCORAL COLITIS... FULL REPORT BELOW. Initial ED EKG: normal axis, none, normal intervals, normal p-waves, normal QRS complex, normal sinus rhythm Comments: PATIENT: VIOLETTE RUSSELL PRESENT AGE: 65 PATIENT ACCOUNT NO: [id number] : 51 LOCATION: [facility] ORDERING PHYSICIAN: ALYSA HUTCHINSON MD SERVICE DATE: 09/25/16 EXAM TYPE: CAT - CT ABD WO IV CONTRAST EXAMINATION: CT ABDOMEN AND PELVIS WITHOUT CONTRAST CLINICAL INFORMATION: Abdominal pain. COMPARISON: 09/20/2016. TECHNIQUE: Contiguous axial thin section helical images of the abdomen and pelvis were performed without oral or IV contrast. The data set was reformatted in the coronal and sagittal planes and reviewed on an independent workstation. DLP: 229 mGy-cm. FINDINGS: The visualized lung bases are clear. The visualized portions of the heart are unremarkable. The liver is of normal size and attenuation without focal lesions nor intrahepatic biliary ductal dilation. A normal gallbladder is identified. There is no wall thickening or discernible pericholecystic fluid. The spleen, pancreas, adrenal glands are unremarkable. Both kidneys are of normal size and attenuation without hydronephrosis or nephrolithiasis. There is an approximately 2 cm cyst within the interpole region of the right kidney. There is no abdominal free fluid. There is neither mesenteric nor retroperitoneal lymphadenopathy. There is a large amount of stool within the colon, particularly within the ascending colon. As identified on the prior exam, there is quite subtle mesenteric fat stranding identified about the ascending colon. There is no significant wall thickening. Otherwise, unremarkable unopacified loops of small and large bowel are identified. There is no pelvic free fluid. The urinary bladder is unremarkable. There is neither pelvic nor inguinal lymphadenopathy. Bone windows: Neither sclerotic nor lytic bone lesions are identified. Again identified is a compression fracture at L4. IMPRESSION: Moderate to large amount of stool throughout the colon, particularly within the ascending colon. There is subtle mesenteric fat stranding identified about the ascending colon. This is nonspecific, but could correspond to stercoral colitis. No abdominal or pelvic free fluid. DICTATED BY: ALLI GUAMAN MD DATE/TIME DICTATED:09/25/16546 PREP MANAGER:RENE DATE/TIME TRANSCRIBED:09/25/16546 CONFIDENTIAL, DO NOT COPY WITHOUT APPROPRIATE AUTHORIZATION. <Electronically signed in Other Vendor System> SIGNED BY: ALLI GUAMAN MD 09/25/16 0557 Departure Departure Disposition: HOME OR SELF CARE Condition: Stable Clinical Impression Primary Impression: Abdominal pain Secondary Impressions: Constipation Referrals: DOMINICK CORDOBA MD (PCP/Family) Departure Forms: Customer Survey General Discharge Information Prescriptions: Current Visit Scripts Peg 3350/Na Sulf,Bicarb,Cl/KCl (Golytely Solution) 1 KIT PO X1 PRN CONSTIPATION #1 KIT Comments 09/25/16, 6:29am.... pt comfortable, feeling well... ct scan with likely mild stercoral colitis with constipation....labs benign... discussed at length with patient... he will pursue bowel clean out with golytely and follow up with pmd/ gi.
[2016-09-25 04:59] LABS: ABSOLUTE BASOPHIL COUNT 0 /CUMM (0.0-0.2); ABSOLUTE EOSINOPHIL COUNT 0.3 /CUMM (0.0-0.7); ABSOLUTE GRANULOCYTE CT 4.4 /CUMM (1.4-6.5); ABSOLUTE LYMPH COUNT 1.4 /CUMM (1.2-3.4); ABSOLUTE MONOCYTE COUNT 0.6 /CUMM (0.10-0.60); BASOPHIL % 0.6 % (0.0-2.0); EOSINOPHIL % 4.5 % (0-5); GRANULOCYTE % 65.2 % (42.2-75.2); HEMATOCRIT 41.9 % (42-52); MEAN CORPUSCULAR HGB CONC 33.4 G/DL (33.0-37.0); MEAN CORPUSCULAR VOLUME 92.7 FL (80.0-94.0); MEAN PLATELET VOLUME 7.6 FL (7.4-10.4); PLATELET COUNT 247 /CUMM (130-400); RBC DISTRIBUTION WIDTH 12.6 % (11.5-14.5); RED BLOOD CELL CT 4.52 /CUMM (4.70-6.10); WHITE BLOOD CELL COUNT 6.8 /CUMM (4.8-10.8)
--- NOTE | 2016-09-25 05:57 | CT SCAN REPORT ---
EXAMINATION: CT ABDOMEN AND PELVIS WITHOUT CONTRAST CLINICAL INFORMATION: Abdominal pain. COMPARISON: 09/20/2016. TECHNIQUE: Contiguous axial thin section helical images of the abdomen and pelvis were performed without oral or IV contrast. The data set was reformatted in the coronal and sagittal planes and reviewed on an independent workstation. DLP: 229 mGy-cm. FINDINGS: The visualized lung bases are clear. The visualized portions of the heart are unremarkable. The liver is of normal size and attenuation without focal lesions nor intrahepatic biliary ductal dilation. A normal gallbladder is identified. There is no wall thickening or discernible pericholecystic fluid. The spleen, pancreas, adrenal glands are unremarkable. Both kidneys are of normal size and attenuation without hydronephrosis or nephrolithiasis. There is an approximately 2 cm cyst within the interpole region of the right kidney. There is no abdominal free fluid. There is neither mesenteric nor retroperitoneal lymphadenopathy. There is a large amount of stool within the colon, particularly within the ascending colon. As identified on the prior exam, there is quite subtle mesenteric fat stranding identified about the ascending colon. There is no significant wall thickening. Otherwise, unremarkable unopacified loops of small and large bowel are identified. There is no pelvic free fluid. The urinary bladder is unremarkable. There is neither pelvic nor inguinal lymphadenopathy. Bone windows: Neither sclerotic nor lytic bone lesions are identified. Again identified is a compression fracture at L4. IMPRESSION: Moderate to large amount of stool throughout the colon, particularly within the ascending colon. There is subtle mesenteric fat stranding identified about the ascending colon. This is nonspecific, but could correspond to stercoral colitis. No abdominal or pelvic free fluid.
[2016-09-25] MEDS ORDERED: GOLYTELY SOLU4000 ML PO (06:23)
[2016-09-25 06:29] VITALS: BP 128/76
== END 2016-09-25 06:28 ==
LOC: ERH 03:49
PROVIDERS: Pediatrics
DX: K59.00 Constipation, unspecified (principal); R68.83 Chills (without fever)
CPT/HCPCS: 93005; 93010; 96374; 96375; J2405

== ENCOUNTER 2016-11-23 22:27 | Emergency (ER) | payer OTHER, MEDICARE ==
[~2016-11-23] VITALS: Ht 167.6 cm; Wt 55.3 kg
[~2016-11-23 22:27] MED LIST changes: +GOLYTELY SOLU4000 ML PO
--- NOTE | 2016-11-23 23:50 | ED GI/GU/ABDOMINAL COMPLAINT ---
History of Present Illness General Chief Complaint: Abdominal Pain/Flank Pain Stated Complaint: ABD PAIN Source: patient Exam Limitations: no limitations Vital Signs & Intake/Output Vital Signs & Intake/Output Vital Signs Date Time Temp Pulse Resp B/P Pulse O2 O2 Flow FiO2 Ox Delivery Rate 11/23 2235 98.2 86 16 119/69 100 Room Air ED Intake and Output 11/24 0000 11/23 1200 Intake Total Output Total Balance Patient 122 lb Weight Allergies Coded Allergies: Iodinated Contrast Media - Oral and (IODINATED CONTRAST MEDIA - IV DYE) (GONZALEZ 11/23/16) latex (RASH 11/23/16) morphine (nv 11/23/16) oxycodone (NAUSEA 11/23/16) Uncoded Allergies: OIL BASE PAINT (Severe, LIGHT HEADED 08/22/11) Reconcile Medications Aspirin (Aspirin*) 325 MG TABLET 0.5 TAB PO DAILY HEART/BLOOD (Reported) Buspirone HCl 15 MG TABLET 0.5 TAB PO BID TINNITUS (Reported) Diazepam 5 MG TABLET 1 TAB PO TIDPRN PRN SPASMS (Reported) Divalproex Sodium 250 MG TABLET.DR 1 TAB PO DAILY SEIZURES (Reported) Finasteride (Unknown Strength) TABLET 5 MG PO DAILY BLADDER (Reported) Levetiracetam 500 MG TABLET 1 TAB PO DAILY SEIZURES (Reported) Levetiracetam 500 MG TABLET 2 TAB PO QPM SEIZURES (Reported) Multivitamin (Multi-Day Vitamins) 1 EACH TABLET 1 TAB PO DAILY SUPPLEMENT ( Reported) Peg 3350/Na Sulf,Bicarb,Cl/KCl (Golytely Packet) 227.1-21.5 POWD.PACK 1 U PO AD PRN STOOL BURDEN Phenobarbital 32.4 MG TABLET 1 TAB PO BID Seizures Phenytoin (Dilantin) 50 MG TAB.CHEW 1 TAB PO QAM SEIZURES (Reported) Triage Note: PT TO ED C/O MID/RIGHT LOWER ABDOMINAL PAIN. ONSET 2 HOURS AGO LAST NORMAL BM 1 MONTH AGO. TRIED LAXATIVES WITH RELIEF. DENIES CP/SOB. -NAUSEA Triage Nurses Notes Reviewed? yes HPI: Patient is a 66 year old male presents complaining of abdominal pain. Abdominal pain is sharp, worsens with palpation. Pain is currently moderate. Patient reports constipation. small bowel movement this morning has not been able to have a bowel movement since approximately 9 AM. Patient is taking polyethylene glycol with no improvement. Positive nausea, no vomiting. Denies fevers, chills, dysuria. (ASHLYN BROWNING) Past History Travel History Traveled to [place] past 21 day No Medical History Any Pertinent Medical History? see below for history Neurological: migraine, seizure, EPILEPSY EENT: NONE Cardiovascular: PALPITATIONS Respiratory: NONE Gastrointestinal: PANCREATITIS Hepatic: CHOLECYSTECTOMY Renal: BRP TURP URETERAL STRICTURES Musculoskeletal: ARTHRITIS L4 COMPRESSION FX Psychiatric: anxiety, depression Endocrine: NONE Blood Disorders: NONE Cancer(s): NONE Other Medical Hx: BPH History of MRSA: No History of VRE: No History of CDIFF: No Surgical History Surgical History: TURP CYSTOSCOPY/URETERAL STRICTURE (02/09) Psychosocial History Who do you live with Patient/Self Services at Home None What is your primary language Luxembourgish Tobacco Use: Never used ETOH Use: denies use Illicit Drug Use: denies illicit drug use Family History Family History, If Any: MOTHER FH: heart disease FATHER FH: cancer Hx Contributory? No (ASHLYN BROWNING) Review of Systems Review of Systems Constitutional: Denies: chills, fever. EENTM: Reports: no symptoms. Respiratory: Denies: cough, short of breath. Cardiovascular: Denies: chest pain. GI: Reports: see HPI. Genitourinary: Reports: no symptoms. Musculoskeletal: Denies: back pain. Skin: Reports: no symptoms. Neurological/Psychological: Reports: no symptoms. Hematologic/Endocrine: Reports: no symptoms. Immunologic/Allergic: Reports: no symptoms. (ASHLYN BROWNING) Physical Exam Physical Exam General Appearance: well developed/nourished, alert, awake Head: atraumatic, normal appearance Eyes: Bilateral: normal appearance, PERRL, EOMI. Ears, Nose, Throat, Mouth: hearing grossly normal, moist mucous membrane Neck: normal inspection, supple, full range of motion Respiratory: normal breath sounds, chest non-tender, no respiratory distress, lungs clear Cardiovascular: regular rate/rhythm Gastrointestinal: normal bowel sounds, soft, mild diffuse abdominal tenderness. No palpable pulsatile masses. No rebound tenderness, no guarding. Back: normal inspection, normal range of motion Extremities: normal range of motion Neurologic/Psych: no motor/sensory deficits, awake, alert, oriented x 3, normal gait, normal mood/affect Skin: intact, normal color, warm/dry Core Measures ACS in differential dx? No Severe Sepsis Present: No Septic Shock Present: No (ASHLYN BROWNING) Progress Differential Diagnosis: AAA, appendicitis, bowel obstruction, cholecystitis, diverticulitis, gastritis, hepatitis, hernia, ischemic bowel, inflamm bowel dis, pancreatitis, prostatitis, perforated viscous, pyelonephritis, SBO, ureterolithiasis, urinary retention, UTI/pyelo Plan of Care: Orders Procedure Date/time Status LACTIC ACID 11/24 257 Active URINALYSIS 11/23 2357 Active LIPASE 11/23 2357 Complete LACTIC ACID 11/23 2357 Complete COMPREHENSIVE METABOLIC PANEL 11/23 2357 Complete CBC WITHOUT DIFFERENTIAL 11/23 2357 Complete AMYLASE 11/23 2357 Complete Laboratory Tests 11/24/16 0027: Anion Gap 4 L, Estimated GFR > 60, BUN/Creatinine Ratio 14.4, Glucose 83, Lactic Acid < 0.5 L, Calcium 9.8, Total Bilirubin 0.4, AST 30, ALT 34, Alkaline Phosphatase 149 H, Total Protein 7.2, Albumin 4.2, Globulin 3.0, Albumin/ Globulin Ratio 1.4, Amylase 84, Lipase 168, CBC w Diff NO MAN DIFF REQ, RBC 4.58 L, MCV 90.6, MCH 31.0, RDW 12.9, MPV 7.3 L, Gran % 70.2, Lymphocytes % 17.7 L , Monocytes % 9.7 H, Eosinophils % 1.9, Basophils % 0.5, Absolute Granulocytes 5.2, Absolute Lymphocytes 1.3, Absolute Monocytes 0.7 H, Absolute Eosinophils 0.1, Absolute Basophils 0, PUBS MCHC 34.2 Patient reports pain improving after small bowel movement in the ED. Discussed with Dr. Greenberg. Results of labs and CT scan discussed with patient. Patient non-toxic appearing , appears stable for discharge and outpatient follow up. (ASHLYN BROWNING) Diagnostic Imaging: Viewed by Me: CT Scan. Discussed w/RAD: CT Scan. Radiology Impression: PATIENT: VIOLETTE RUSSELL PRESENT AGE: 66 PATIENT ACCOUNT NO: [id number] : 51 LOCATION: [facility] ORDERING PHYSICIAN: ASHLYN DORANTES SERVICE DATE: 11/24/16 EXAM TYPE: CAT - CT ABD & PELVIS W/O IV CONTRAS EXAMINATION: CT ABDOMEN AND PELVIS WITHOUT CONTRAST CLINICAL INFORMATION: Abdominal pain. Constipation. COMPARISON: CT scan abdomen pelvis 09/25/2016 TECHNIQUE: Multidetector volumetric imaging was performed from the superior aspect of the liver through the pubic symphysis. Sagittal and coronal reformatted images were obtained on the technologist's workstation. DLP: 251.51 mGy-cm FINDINGS: LUNG BASES: The visualized lung bases are unremarkable. LIVER, GALLBLADDER, AND BILIARY TREE: The liver is normal in size, shape, and attenuation. No focal hepatic lesion or biliary ductal dilatation is present. Gallbladder not visualized. PANCREAS: Unremarkable. SPLEEN: Unremarkable. ADRENAL GLANDS: Unremarkable. KIDNEYS AND URETERS: 2 cm cortical cyst at the anterior midpole right kidney. The kidneys are normal in size, shape, and attenuation. No hydronephrosis, hydroureter, or calculi seen. No perinephric stranding. BLADDER: Unremarkable. GASTROINTESTINAL TRACT: Large volume of stool. Stool seen throughout the colon. No dilated bowel loop. No obstruction. No bowel wall thickening or edema. The appendix is normal. Small bowel loops are normal. ABDOMINAL WALL: No significant hernia is appreciated. LYMPH NODES: Normal. VASCULAR: Unremarkable. PELVIC VISCERA: Prostate measures 4.8 cm transverse with calcifications OSSEOUS STRUCTURES: Central compression deformity at the superior and inferior endplate of L4. Unchanged since prior exam 09/25/2016. IMPRESSION: No acute abnormality of abdomen or pelvis. There is a large volume of stool in the colon but the bowel pattern is nonobstructive. DICTATED BY: ALETHEA BYRD MD DATE/TIME DICTATED:11/24/1654 CUSTOMER SUCCESS MANAGER :RENE DATE/TIME TRANSCRIBED:11/24/1654 CONFIDENTIAL, DO NOT COPY WITHOUT APPROPRIATE AUTHORIZATION. <Electronically signed in Other Vendor System> SIGNED BY: ALETHEA BYRD MD 11/24/16104 Initial ED EKG: none (ASHLYN BROWNING) Departure Departure Time of Disposition: 114 Disposition: HOME OR SELF CARE Condition: Stable Clinical Impression Primary Impression: Constipation Qualifiers: Constipation type: unspecified constipation type Qualified Code: K59.00 - Constipation, unspecified Secondary Impressions: Abdominal pain Referrals: VANGIE DAILY,JO-ANN CORDOBA MD,DOMINICK Taveras (PCP/Family) Additional Instructions: Follow-up with your primary doctor or with the accounting manager controller listed in your discharge paperwork. Take Magnesium Citrate, 1/4 bottle every 1-2 hours up to 1 full bottle for constipation. Return to the ER if fevers or worsening of symptoms. Departure Forms: Customer Survey General Discharge Information (ASHLYN BROWNING) PA/LIFT SLAB OPERATOR Co-Sign Statement Statement: ED Attending supervision documentation- [] I saw and evaluated the patient. I have also reviewed all the pertinent lab results and diagnostic results. I agree with the findings and the plan of care as documented in the PA's/LIFT SLAB OPERATOR's documentation. [X] I have reviewed the ED Record and agree with the PA's/LIFT SLAB OPERATOR's documentation. [] Additions or exceptions (if any) to the PAs/LIFT SLAB OPERATOR's note and plan are summarized below: [] (JASMEET DAILY,CRISTI)
[2016-11-24 00:43] LABS: ABSOLUTE BASOPHIL COUNT 0 /CUMM (0.0-0.2); ABSOLUTE EOSINOPHIL COUNT 0.1 /CUMM (0.0-0.7); ABSOLUTE GRANULOCYTE CT 5.2 /CUMM (1.4-6.5); ABSOLUTE LYMPH COUNT 1.3 /CUMM (1.2-3.4); ABSOLUTE MONOCYTE COUNT 0.7 /CUMM (0.10-0.60); BASOPHIL % 0.5 % (0.0-2.0); EOSINOPHIL % 1.9 % (0-5); GRANULOCYTE % 70.2 % (42.2-75.2); HEMATOCRIT 41.5 % (42-52); MEAN CORPUSCULAR HGB CONC 34.2 G/DL (33.0-37.0); MEAN CORPUSCULAR VOLUME 90.6 FL (80.0-94.0); MEAN PLATELET VOLUME 7.3 FL (7.4-10.4); PLATELET COUNT 267 /CUMM (130-400); RBC DISTRIBUTION WIDTH 12.9 % (11.5-14.5); RED BLOOD CELL CT 4.58 /CUMM (4.70-6.10); WHITE BLOOD CELL COUNT 7.5 /CUMM (4.8-10.8)
--- NOTE | 2016-11-24 01:05 | CT SCAN REPORT ---
EXAMINATION: CT ABDOMEN AND PELVIS WITHOUT CONTRAST CLINICAL INFORMATION: Abdominal pain. Constipation. COMPARISON: CT scan abdomen pelvis 09/25/2016 TECHNIQUE: Multidetector volumetric imaging was performed from the superior aspect of the liver through the pubic symphysis. Sagittal and coronal reformatted images were obtained on the technologist's workstation. DLP: 251.51 mGy-cm FINDINGS: LUNG BASES: The visualized lung bases are unremarkable. LIVER, GALLBLADDER, AND BILIARY TREE: The liver is normal in size, shape, and attenuation. No focal hepatic lesion or biliary ductal dilatation is present. Gallbladder not visualized. PANCREAS: Unremarkable. SPLEEN: Unremarkable. ADRENAL GLANDS: Unremarkable. KIDNEYS AND URETERS: 2 cm cortical cyst at the anterior midpole right kidney. The kidneys are normal in size, shape, and attenuation. No hydronephrosis, hydroureter, or calculi seen. No perinephric stranding. BLADDER: Unremarkable. GASTROINTESTINAL TRACT: Large volume of stool. Stool seen throughout the colon. No dilated bowel loop. No obstruction. No bowel wall thickening or edema. The appendix is normal. Small bowel loops are normal. ABDOMINAL WALL: No significant hernia is appreciated. LYMPH NODES: Normal. VASCULAR: Unremarkable. PELVIC VISCERA: Prostate measures 4.8 cm transverse with calcifications OSSEOUS STRUCTURES: Central compression deformity at the superior and inferior endplate of L4. Unchanged since prior exam 09/25/2016. IMPRESSION: No acute abnormality of abdomen or pelvis. There is a large volume of stool in the colon but the bowel pattern is nonobstructive.
[2016-11-24 01:23] VITALS: BP 118/76
== END 2016-11-24 01:40 ==
LOC: ERH 22:27
PROVIDERS: Physician Assistant
DX: K59.00 Constipation, unspecified (principal)
CPT/HCPCS: 74176

== ENCOUNTER 2016-12-17 14:16 | Emergency (ER) | payer OTHER, MEDICARE ==
[~2016-12-17] VITALS: Ht 167.6 cm; Wt 56.7 kg
[2016-12-17 17:13] LABS: ABSOLUTE BASOPHIL COUNT 0.1 /CUMM (0.0-0.2); ABSOLUTE EOSINOPHIL COUNT 0.2 /CUMM (0.0-0.7); ABSOLUTE GRANULOCYTE CT 4.9 /CUMM (1.4-6.5); ABSOLUTE LYMPH COUNT 1.1 /CUMM (1.2-3.4); ABSOLUTE MONOCYTE COUNT 0.7 /CUMM (0.10-0.60); BASOPHIL % 0.9 % (0.0-2.0); EOSINOPHIL % 2.6 % (0-5); GRANULOCYTE % 70.4 % (42.2-75.2); HEMATOCRIT 41.4 % (42-52); MEAN CORPUSCULAR HGB 30.8 PG (27.0-31.0); MEAN CORPUSCULAR VOLUME 93.4 FL (80.0-94.0); PLATELET COUNT 293 /CUMM (130-400); RBC DISTRIBUTION WIDTH 13.3 % (11.5-14.5); RED BLOOD CELL CT 4.43 /CUMM (4.70-6.10)
[2016-12-17] MEDS ORDERED: GINSENG100 M1 PO (17:48)
--- NOTE | 2016-12-17 18:32 | ED GENERAL ADULT ---
See Addendum History of Present Illness General Chief Complaint: General Adult Stated Complaint: PINCHED NERVE IN NECK Source: patient Exam Limitations: poor historian Vital Signs & Intake/Output Vital Signs & Intake/Output Vital Signs Date Time Temp Pulse Resp B/P B/P Pulse O2 O2 Flow FiO2 Mean Ox Delivery Rate 12/18 2023 97.3 76 18 112/70 97 Room Air 12/17 1422 98.2 98 16 115/68 100 Room Air Allergies Coded Allergies: Iodinated Contrast Media - Oral and (IODINATED CONTRAST MEDIA - IV DYE) (GONZALEZ 11/23/16) latex (RASH 11/23/16) morphine (nv 11/23/16) oxycodone (NAUSEA 11/23/16) Uncoded Allergies: OIL BASE PAINT (Severe, LIGHT HEADED 08/22/11) Reconcile Medications Finasteride (Unknown Strength) TABLET 5 MG PO DAILY BLADDER (Reported) Kiswahili Ginseng Root Extract (Ginseng) (Unknown Strength) CAPSULE (Unknown Dose ) PO DAILY SUPPLEMENT (Reported) Levetiracetam 500 MG TABLET 1 TAB PO DAILY SEIZURES (Reported) Levetiracetam 500 MG TABLET 2 TAB PO QPM SEIZURES (Reported) Multivitamin (Multi-Day Vitamins) 1 EACH TABLET 1 TAB PO DAILY SUPPLEMENT ( Reported) Phenobarbital 32.4 MG TABLET 1 TAB PO BID Seizures Phenytoin (Dilantin) 50 MG TAB.CHEW 150 MG PO QAM SEIZURES (Reported) Triage Note: 66 Y/O MALE C/O "PINCHED NERVE IN MY NECK ACCORDING TO DR VITAL". STATES NOW HE IS HAVING "TINGLING IN MY EARS, IM HOT, IM COLD, YOU NAME IT YORDAN GOT IT". STATES HE CALLED DR VITAL OVER THE PHONE AND WAS ADVISED TO COME TO ED Triage Nurses Notes Reviewed? yes Onset: Abrupt Duration: week(s):, getting worse Timing: recent history Injury Environment: home No Modifying Factors: none HPI: 66-year-old male comes into emergency room for further evaluation of back pain getting progressively worse. Patient was sent in by his primary care doctor for further evaluation. Patient has been falling at home and not able to take care of himself. Patient has had increased pain and numbness and tingling in his lower legs. Patient has had some motor weakness. He has a history of seizure disorder. He reports increasing weakness. Currently denies any chest pain or shortness of breath. His primary care doctor said he had decreased tactile sensation in his lower legs and decreased reflexes in his lower legs bilaterally. (ROSALIND CHOWDHURY) Past History Travel History Traveled to [place] past 21 day No Medical History Any Pertinent Medical History? see below for history Neurological: migraine, seizure, EPILEPSY EENT: NONE Cardiovascular: PALPITATIONS Respiratory: NONE Gastrointestinal: PANCREATITIS Hepatic: CHOLECYSTECTOMY Renal: BRP TURP URETERAL STRICTURES Musculoskeletal: ARTHRITIS L4 COMPRESSION FX Psychiatric: anxiety, depression Endocrine: NONE Blood Disorders: NONE Cancer(s): NONE Other Medical Hx: BPH History of MRSA: No History of VRE: No History of CDIFF: No Surgical History Surgical History: TURP CYSTOSCOPY/URETERAL STRICTURE (02/09) Psychosocial History Who do you live with Patient/Self Services at Home None What is your primary language Botswanan Tobacco Use: Quit >30 days ago Family History Family History, If Any: MOTHER FH: heart disease FATHER FH: cancer Hx Contributory? No (ROSALIND CHOWDHURY) Review of Systems Review of Systems Constitutional: Reports: see HPI. EENTM: Reports: no symptoms. Respiratory: Reports: no symptoms. Cardiovascular: Reports: no symptoms. GI: Reports: no symptoms. Genitourinary: Reports: no symptoms. Musculoskeletal: Reports: see HPI. Skin: Reports: no symptoms. Neurological/Psychological: Reports: no symptoms. Hematologic/Endocrine: Reports: no symptoms. Immunologic/Allergic: Reports: no symptoms. All Other Systems: Reviewed and Negative (ROSALIND CHOWDHURY) Physical Exam Physical Exam General Appearance: well developed/nourished, no apparent distress, alert Head: atraumatic, normal appearance Eyes: Bilateral: normal appearance, PERRL, EOMI. Ears, Nose, Throat: normal pharynx, normal ENT inspection Neck: normal inspection, full range of motion Respiratory: normal breath sounds, no respiratory distress Cardiovascular: regular rate/rhythm Gastrointestinal: normal bowel sounds Back: normal inspection, normal range of motion Extremities: normal inspection, normal capillary refill, normal range of motion Neurologic/Psych: awake, alert, oriented x 3, normal gait, sHARP AND DULL SENSATION INTACT IN LOWER LEGS, MOTOR STRENGTH INTACT, Skin: intact, normal color Core Measures ACS in differential dx? No CVA/TIA Diagnosis: No Severe Sepsis Present: No Septic Shock Present: No (ROSALIND CHOWDHURY) Progress Differential Diagnoses I considered the following diagnoses in my evaluation of the patient: Cauda equina, guillain narre syndrome, lumbar herniated disc, Lyme disease, arthritis, Plan of Care: Orders Procedure Date/time Status Regular Diet 12/18 B Active CASE MANAGEMENT CONSULT 12/18 1935 Active PT Evaluate & Treat 12/17 1920 Active MRI-LUMBAR SPINE 12/17 1920 Active MAGNESIUM 12/17 165 Complete URINALYSIS 12/17 1646 Complete TROPONIN LEVEL 12/17 1646 Complete COMPREHENSIVE METABOLIC PANEL 12/17 1646 Complete CBC WITHOUT DIFFERENTIAL 12/17 1646 Complete EKG 12/17 1646 Active Current Medications Sig/Merly Start time Last Medication Dose Stop Time Status Admin Levetiracetam 500 MG QAM 12/18 1000 UNVr (Keppra) Phenytoin 150 MG DAILY 12/18 1000 UNVr (Dilantin ER) Levetiracetam 1,000 MG ONCE ONE 12/17 2314 UNVr (Keppra) 12/18 2315 Phenobarbital 32.4 MG BID 12/17 2313 UNVr Laboratory Tests 12/17/161903: CBC w Diff NO MAN DIFF REQ, RBC 4.43 L, MCV 93.4, MCH 30.8, RDW 13.3, MPV 7.0 L, Gran % 70.4, Lymphocytes % 15.7 L, Monocytes % 10.4 H, Eosinophils % 2.6, Basophils % 0.9, Absolute Granulocytes 4.9, Absolute Lymphocytes 1.1 L, Absolute Monocytes 0.7 H, Absolute Eosinophils 0.2, Absolute Basophils 0.1, PUBS MCHC 33.0 12/17/16 1720: Urine Color YEL, Urine Clarity CLEAR, Urine pH 6.5, Ur Specific [place] 1.010, Urine Protein NEG, Urine Ketones NEG, Urine Nitrite NEG, Urine Bilirubin NEG, Urine Urobilinogen 0.2, Ur Leukocyte Esterase NEG, Ur Microscopic SEDIMENT EXAMINED, Urine RBC RARE, Urine WBC RARE, Ur Epithelial Cells RARE, Urine Bacteria FEW H, Urine Hemoglobin TRACE-INTACT H, Urine Glucose NEG 12/17/16 1704: Magnesium 2.1 12/17/16 170: Anion Gap 8, Estimated GFR > 60, BUN/Creatinine Ratio 14.4, Glucose 84, Calcium 9.0, Total Bilirubin 0.3, AST 25, ALT 35, Alkaline Phosphatase 143 H, Troponin I < 0.01, Total Protein 6.7, Albumin 3.8, Globulin 2.9, Albumin/Globulin Ratio 1.3 Initial ED EKG: normal intervals, normal p-waves, normal QRS complex, normal sinus rhythm, rate (79) Hand-Off Endorsed To: ALYSA CARTWRIGHT MD Endorsed Time: 1919 (ROSALIND CHOWDHURY) Departure Departure Disposition: STILL A PATIENT Condition: Stable Clinical Impression Primary Impression: Lumbar radiculopathy Referrals: ADALID DAILY,DOMINICK Taveras (PCP/Family) Departure Forms: Customer Survey General Discharge Information Comments 12/17/2016 7:21:58 PM Case management was consult. They do not feel that the patient requires an admission or observation inpatient at this time. Patient will be held here in the emergency room until tomorrow morning for MRI and physical therapy consult. Patient was signed out to Dr. Cartwright. (ROSALIND CHOWDHURY) PA/FREIGHT RATE ANALYST Co-Sign Statement Statement: ED Attending supervision documentation- [] I saw and evaluated the patient. I have also reviewed all the pertinent lab results and diagnostic results. I agree with the findings and the plan of care as documented in the PA's/FREIGHT RATE ANALYST's documentation. [x] I have reviewed the ED Record and agree with the PA's/FREIGHT RATE ANALYST's documentation. [] Additions or exceptions (if any) to the PAs/FREIGHT RATE ANALYST's note and plan are summarized below: [] (JASPER DAILY,ALYSA Sumner) Critical Care Note Critical Care Note Critical Care Time: non-applicable (ROSALIND CHOWDHURY)
--- NOTE | 2016-12-17 21:13 | CT SCAN REPORT ---
EXAMINATION: CT HEAD WITHOUT CONTRAST CLINICAL INFORMATION: Headaches, tinnitus. COMPARISON: 09/06/2016. TECHNIQUE: Contiguous axial images of the brain were obtained without IV contrast. DLP: 601 mGy-cm. FINDINGS: There are no pathologic extra-axial fluid collections. The lateral, third, fourth ventricles are nondilated and concordant with the appearance of the sulci. There is no evidence for acute intraparenchymal hemorrhage or infarct. There is neither mass nor mass effect. There is no shift of midline structures. The paranasal sinuses and mastoid air cells are clear. There are no osseous lesions. IMPRESSION: No evidence for acute intracranial injury.
--- NOTE | 2016-12-18 10:10 | MRI REPORT ---
EXAMINATION: MR LUMBAR SPINE WITHOUT CONTRAST CLINICAL INFORMATION: 66-year-old man with low back pain and lower extremity numbness. COMPARISON: 07/01/2011 MRI TECHNIQUE: MRI of the lumbar spine was obtained without contrast. FINDINGS: ALIGNMENT: Minimal degenerative retrolisthesis of L5 on S1 is unchanged. VERTEBRAL BODIES: There is central depression of the superior L4 endplate that is unchanged in comparison to a recent abdominal CT and new since the prior referenced MRI. There is no associated marrow edema. There is mild degenerative anterior wedging of T11 as well that is stable. BONE MARROW: Degenerative endplate marrow signal and associated contour changes are most apparent at L4-L5 and L5-S1. An atypical hemangioma in the L2 vertebral body is unchanged. INTERVERTEBRAL DISCS: There is desiccation and mild volume loss of the T10-T11, T11-T12, L4-L5, and L5-S1 intervertebral discs. CONUS MEDULLARIS, CAUDA EQUINA, AND SOFT TISSUES: The right kidney is inferiorly located. There are peripelvic cysts seen bilaterally. The conus terminates at the L1-L2 level. L1-L2, L2-L3: The disc contours are normal, and the canal and foramina remain widely patent. L3-L4: A subtle broad-based left foraminal disc protrusion is new since the prior exam. There is mild facet arthrosis. The canal and foramina remain nonstenotic. L4-L5: There is a diffuse disc bulge and mild facet arthrosis. The canal and foramina remain nonstenotic. L5-S1: Disc osteophyte complex and mild facet arthrosis are unchanged. The canal remains patent. There is mild narrowing of the neural foramina, right greater than left, similar to the previous study. IMPRESSION: Mild multilevel lumbar spondylosis is fairly similar to the patient's prior exam. No severe canal or foraminal stenosis is noted at any level.
[2016-12-18 11:12] VITALS: BP 116/65
== END 2016-12-18 11:13 | disposition still patient (30) ==
LOC: ERH 14:16
PROVIDERS: Physician Assistant Medical
DX: M54.16 Radiculopathy, lumbar region (principal); R20.0 Anesthesia of skin
CPT/HCPCS: 72148; 81001; 93005; 93010; 97116-GP; 97161-GP; G8978-GP; G8979-GP; G8980-GP; J1885